=== PATIENT | male | born 1985 | race Caucasian/White ===

== ENCOUNTER 2019-07-08 18:28 | Inpatient (IN) ==
[2019-07-08] MEDS ORDERED: NITROGLYCERIN SL 0.4 MG/TAB TAB SL STA (18:57)
[2019-07-08] MEDS ORDERED: ASPIRIN CHEW 324 MG PO STA (18:57)
[2019-07-08] MEDS ORDERED: NovoLIN-R INSULIN PER UNIT CHARGE IV STA (19:15)
[2019-07-08] MEDS ORDERED: SODIUM CHLORIDE 0.9% 1000ML 1,000 ML IV ONE (19:15)
[2019-07-08 19:16] LABS: Basophils # (auto) 0.05 K/uL (0-0.2); Basophils % (auto) 0.5 %; Eosinophils # (auto) 0.08 K/uL (0-0.5); Eosinophils % (auto) 0.9 %; Hematocrit (blood only) 39.4 % (42-52); Hemoglobin 14.5 g/dL (14.0-18.0); Immature Granulocytes # (auto) 0.04 K/uL (0.00-0.02); Immature Granulocytes % (auto) 0.4 %; Lymphocytes # (auto) 2.29 K/uL (1.2-3.4); Lymphocytes % (auto) 24.4 %; Mean Corpuscular Hgb Conc 36.8 g/dL (32-36); Mean Corpuscular Volume 76.5 fL (80-100); Mean Platelet Volume 11.9 fL (7.4-10.4); Monocytes # (auto) 0.62 K/uL (0.11-0.59); Monocytes % (auto) 6.6 %; Neutrophils # (auto) 6.29 K/uL (1.4-6.5); Neutrophils % (auto) 67.2 %; Platelet Count 250 K/uL (130-400); RDW Coefficient of Variation 12.4 % (11.5-14.5); RDW Standard Deviation 34.4 fL (36.4-46.3); Red Blood Count 5.15 M/uL (4.7-6.1); White Blood Count 9.37 K/uL (4.8-10.8)
[2019-07-08] MEDS ORDERED: fentaNYL citrate 100 MCG/2 ML VIAL IV STA (19:35)
[2019-07-08] MEDS ORDERED: ONDANSETRON INJ 2 MG/ML 2 ML VIAL IV STA (19:36)
[2019-07-08 19:37] LABS: Albumin Globulin Ratio 0.9 (0.9-2); Albumin Level 3.7 gm/dl (3.4-5.0); BUN Creatinine Ratio 16.6 (10-20); Bilirubin,Total 0.5 mg/dl (0.2-1); Calcium 9.2 mg/dl (8.5-10.1); Creatinine Clr Calc Pharmacy 152.3 ml/min; Est GFR (African American) 144.6; Est GFR (Non-African American) 124.7; Potassium 4.2 mmol/L (3.5-5.1); Total Protein 7.7 gm/dl (6.4-8.2)
[2019-07-08] MEDS ORDERED: LORazepam 1 MG/2 ML VIAL IV STA (19:50)
--- NOTE | 2019-07-08 19:53 | XRay Report ---
XR chest 1V portable CLINICAL HISTORY: Atypical chest pain COMPARISON STUDY: September 2011 FINDINGS: The cardiac and mediastinal contours are normal. There is no evidence of focal pulmonary co nsolidation. There is no evidence of failure. No pleural effusions are visualized.[ IMPRESSION: No active disease in the chest. Electronically signed by: Samuel Corona M.D. 07/08/2019 7:52 PM
[2019-07-08] MEDS ORDERED: NITROGLYCERIN 2% OINTMENT 30GM TUBE EXT ONE (20:19)
--- NOTE | 2019-07-08 21:58 | History & Physical Report ---
Date of Service July 08, 2019 Assessment & Plan (1) Chest pain: 33-year-old male was admitted on 08 July 2019 for chest pain. Chest pain: Apparently started after a stressful morning at work. Chest pain began at 1340 and was constant until relieved with nitroglycerin in ED. Apparently has had chest pain in the past but does not seem to have ever been evaluated. - In ED, afebrile, transiently tachycardic, transiently tachypneic, moderately hypertensive, with mostly normal room SpO2. WBC 9. D-dimer negative. pCXR was clear. POC troponin at 1905 was negative. Two initial EKGs were normal sinus rhythm without acute ST-T changes. - In ED, treated with aspirin 324 mg, nitroglycerin (tab and paste), Zofran, fentanyl, and Ativan. - Will keep nitroglycerin paste in place. Serial troponins and EKGs. Cardiac monitoring. Will order a stress echocardiogram for the morning. N.p.o. for now. Check A1c and lipids in the morning. Hyperglycemia, history of diabetes: Admit blood sugar 432, anion gap 9. Seen in the ED the day before for hyperglycemia. Previously decided to stop taking metformin. At present, patient says he is very against insulin as it is "bad science. - In ED, patient refused insulin. Given normal saline IVF. - Had long discussion with patient about risks of DKA and necessity of insulin. Will place orders for Lantus 10 units x 1 and insulin sliding scale. Continue IVF. - If patient refuses insulin, please document and continue to encourage its use as needed. Ongoing medical issues: - History of anxiety: Previous Ativan use. Code status: Full code. Diet: NPO for now pending stress test in am. DVT prophy: Lovenox. PT/OT: Deferred. Disbo: Admit to [facility] telemetry for observation. (2) Hyperglycemia: (3) Diabetes mellitus: (4) Anxiety: History of Present Illness Primary Care Provider: Susan Walls 33-year-old male presents to the emergency department with his girlfriend complaining of chest pain and possible shortness of breath. During this H&P, patient seems a bit sedated s/p Ativan but is easily arousable. He does not volunteer any information. Majority of the history is per the ED note and his girlfriend at bedside. - Per the girlfriend, the patient had a very stressful morning at work. He was given some increased responsibilities. She states that about 1:40 PM this afternoon he started developing central chest pain that radiated to his left arm and shoulder blade. Patient says this pain was constant until he was treated for it in the ED. When I asked him, initially said he was here because he was "out of breath". At present, he denies any chest pain, shortness of breath, nausea or vomiting, abdominal pain, or any other acute concerns. - We also discussed his elevated blood sugars and his ED note from a day ago. His girlfriend states that the patient was once on metformin but does not really like to take it. She also stated that the patient really dislikes insulin and does not want to be on it. I asked the patient and he replied that he does not like insulin because it is "unproven science" and that it hurt many members of his family they were on it. At present, he does say he would prefer to be on pill management for diabetes. His girlfriend says that his regular PCP was in [place] and they are looking for a primary provider in [place]. - Past medical history includes diabetes and anxiety. - No noted past surgical history. - Family history includes history of hypertension and diabetes. He also says that his father has had multiple heart attacks and that his brother (1 year difference) also has had multiple heart attacks. - Social history includes former smoker. Denies alcohol and illicit drug use. [employer]. Allergies Allergy/AdvReac Type Severity Reaction Status Date / Time bee venom protein (honey bee) Allergy Severe HIVES Verified 07/07/19 03:45 pollen extracts Allergy Mild UNKNOWN Verified 07/07/19 03:45 Home Medications Home Medications Medication Instructions Recorded Confirmed Type No Known Home Medications 07/08/19 07/08/19 History Past Med/Surg History Medical History Diabetes mellitus (Chronic) Surgical History No pertinent past surgical history Family History Other Cancer Diabetes Heart disease Hypertension Social History Preferred Language: Yi Business Objects Required: No Beliefs That Will Affect Care: None Current Living Situation: Significant Other Feels Safe at Home: Yes Smoking Status: Never smoker Hx Alcohol Use: No Hx Substance Use: No Review of Systems Review of Systems: Unable to obtain full ROS due to patient's generally sedated state. Physical Exam Physical Exam: GENERAL: Appears overall somnolent but answers quickly and easily arousable, answers questions, and does not appear in any acute distress. HENT: Normocephalic, atraumatic. Oropharynx is very dry. EYES: Normal conjunctiva. Sclera non-icteric. NECK: Inspection normal. Supple and full ROM. No nuchal rigidity. CARDIAC: +S1S2 RRR, no murmurs. RESPIRATORY: Clear to auscultation. No wheezes or rales. Normal respiratory effort. GI: +BS, soft, non-distended. No tenderness to palpation. No rebound or guarding. EXTREMITIES: No pedal edema or calf tenderness. Moving all extremities naturally and easily. NEURO: No gross neuro deficits. Results & Data Vital Signs (Past 12 Hours) Vital Signs Temp Pulse Resp BP Pulse Ox 07/08/19 21:30 75 19 124/87 94 07/08/19 21:00 72 26 H 134/95 96 07/08/19 20:45 71 18 122/91 96 07/08/19 20:35 74 22 142/102 H 96 07/08/19 20:28 69 22 142/98 H 95 07/08/19 20:25 70 15 139/95 94 07/08/19 20:20 67 11 L 135/99 94 07/08/19 20:15 64 14 129/94 98 07/08/19 20:10 74 10 L 143/95 H 85 L 07/08/19 20:05 56 L 8 L 136/93 70 L 07/08/19 20:00 60 7 L 160/98 H 77 L 07/08/19 19:55 70 22 143/97 H 99 07/08/19 19:50 70 28 H 156/106 H 99 07/08/19 19:45 97 H 19 160/126 H 100 07/08/19 19:40 74 31 H 160/115 H 100 07/08/19 19:35 82 20 144/103 H 89 L 07/08/19 19:30 75 30 H 148/117 H 90 07/08/19 19:25 109 H 20 153/107 H 98 07/08/19 19:20 101 H 31 H 147/115 H 07/08/19 19:16 100 H 23 153/93 H 07/08/19 19:14 78 34 H 139/102 H 07/08/19 19:10 85 34 H 07/08/19 18:45 76 17 159/102 H 07/08/19 18:33 36.4 C L 69 18 155/98 H 97 Laboratory Results 07/08/19 07/08/19 07/08/19 Range/Units 19:05 19:00 19:00 WBC 9.37 (4.8-10.8) K/uL RBC 5.15 (4.7-6.1) M/uL Hgb 14.5 (14.0-18.0) g/dL Hct 39.4 L (42-52) % MCV 76.5 L (80-100) fL MCH 28.2 (25-34) pg MCHC 36.8 H (32-36) g/dL RDW Std Deviation 34.4 L (36.4-46.3) fL RDW Coeff of Javid 12.4 (11.5-14.5) % Plt Count 250 (130-400) K/uL MPV 11.9 H (7.4-10.4) fL Immature Gran % (Auto) 0.4 % Neut % (Auto) 67.2 % Lymph % (Auto) 24.4 % Kings % (Auto) 6.6 % Eos % (Auto) 0.9 % Baso % (Auto) 0.5 % Immature Gran # (Auto) 0.04 H (0.00-0.02) K/uL Neut # (Auto) 6.29 (1.4-6.5) K/uL Lymph # (Auto) 2.29 (1.2-3.4) K/uL Kings # (Auto) 0.62 H (0.11-0.59) K/uL Eos # (Auto) 0.08 (0-0.5) K/uL Baso # (Auto) 0.05 (0-0.2) K/uL POC D-Dimer 105 (0-450) ng/mlFEU Sodium 134 L (136-145) mmol/L Potassium 4.2 (3.5-5.1) mmol/L Chloride 100 (98-107) mmol/L Carbon Dioxide 25 (21-32) mmol/L Anion Gap 9.0 (3-11) BUN 11 (7-18) mg/dl Creatinine 0.69 (0.6-1.4) mg/dl Est Cr Clr Drug Dosing 152.3 ml/min Est GFR ( Amer) 144.6 Est GFR (Non-Af Amer) 124.7 BUN/Creatinine Ratio 16.6 (10-20) Glucose 432 H* (70-99) mg/dl Calcium 9.2 (8.5-10.1) mg/dl Total Bilirubin 0.5 (0.2-1) mg/dl AST 17 (15-37) U/L ALT 34 (12-78) U/L Alkaline Phosphatase 78 (45-117) U/L POC Troponin I < 0.03 (0-0.045) ng/ml Total Protein 7.7 (6.4-8.2) gm/dl Albumin 3.7 (3.4-5.0) gm/dl Globulin 4.0 (2.5-4.0) gm/dl Albumin/Globulin Ratio 0.9 (0.9-2) Beta-Hydroxybutyric Acd (0.2-2.81) mg/dl Specimen Hemolysis Medications Administered Discontinued Medications Aspirin (Aspirin) 324 mg PO NOW STA Stop: 07/08/19 18:58 Last Admin: 07/08/19 19:09 Dose: 324 mg Documented by: Fentanyl Citrate (Fentanyl Citrate) 50 mcg IV NOW STA Stop: 07/08/19 19:36 Last Admin: 07/08/19 19:40 Dose: 50 mcg Documented by: [id number] Sodium Chloride (Nss 1000ml) 1,000 mls @ 999 mls/hr IV .Q1H1M ONE Stop: 07/08/19 20:15 Last Infusion: 07/08/19 20:00 Dose: 0 mls/hr Documented by: [id number] Admin: 07/08/19 19:17 Dose: 999 mls/hr Documented by: [id number] Lorazepam (Ativan) 1 mg in 2 mls @ 2 mls/min IV NOW STA Stop: 07/08/19 19:51 Last Admin: 07/08/19 19:57 Dose: 2 mls/min Documented by: [id number] Insulin Human Regular (Novolin R U-100 Per Unit) 8 units IV NOW STA Stop: 07/08/19 19:16 Last Admin: 07/08/19 19:25 Dose: Not Given Documented by: [id number] Nitroglycerin (Nitrostat) 0.4 mg SL UD STA Stop: 07/08/19 18:58 Last Admin: 07/08/19 19:11 Dose: 0.4 mg Documented by: [id number] Nitroglycerin (Nitro-Bid 2%) 1 inch EXT NOW ONE Stop: 07/08/19 20:20 Last Admin: 07/08/19 20:29 Dose: 1 inch Documented by: [id number] Ondansetron HCl (Zofran) 4 mg IV NOW STA Stop: 07/08/19 19:37 Last Admin: 07/08/19 19:39 Dose: 4 mg Documented by: [id number] Code Status & VTE Plan Code Status Full code VTE Prophylaxis Plan VTE Prophylaxis will be ordered: Yes Supervising Physician Co-Signing Physician Notes Attending Attestation & Admission Note: Pt seen/examined, chart reviewed, care plan d/w resident Dr Wilfredo Barfield. I agree w/ the cruz components of his admission documentation. 33yo male with severely uncontrolled T2DM due to dietary and medicinal noncompliance, strong family h/o CAD (brother, father w/ CAD), prior tobacco use - presenting with several hours of left-sided chest pain with radiation to the left shoulder. Had associated dyspnea. Pain resolved with nitro. During my assessment he was quite sedated due to ativan and fentanyl administration in the ER. He was able to tell me, however, he had never had chest pain prior. PMH, PSH, allergies, meds, sochx, famhx, ros - reviewed vitals stable, afebrile gen - NAD, sleepy but arousable mouth - MMM neck - no JVD heart - RRR, s1 s2, no murmur chest - no reproducible chest wall pain lungs - CTA b/l abd - soft NT ND BS+ ext - no edema labs reviewed; trop negative. EKG #1 - minimal ST changes III, AVF and anteroseptal leads EKG #2 - inferior changes resolved; anterior changes resolved A/P: 33yo male - severely uncontrolled T2DM, family h/o CAD, prior tobacco use - presenting with chest pain now resolved s/p nitro. History highly concerning his pain could be cardiac in origin. Tele, serial troponins, EKG in am. At minimum needs stress echo. NEEDS SIGNIFICANT IMPROVEMENT IN DM CONTROL; IDEALLY NEEDS INTENSIVE INSULIN REGIMEN FOR CONTROL. Check hemoglobin a1c, lipids. NPO after MN for cardiac testing tomorrow. Sylvain Qureshi MD PG Care Time/CCT Total # of Minutes Spent Total Time Spent with Patient: Total time spent is greater than 50% in coordination of care (as documented) at patient's floor/unit and/or counseling patient: Resident Activity Tracking Resident Involvement: Resident Care Provided Care Provided: Adult Hospital Medicine
--- NOTE | 2019-07-08 22:16 | Emergency Department Note ---
Entered by Anna Tang acting as a scribe for Kenny Casey MD History of Present Illness General Chief complaint: Chest Pain Stated complaint: CHEST PAIN, SOB, LEFT ARM PAIN- HX HYPERGLYCEMIA Source: patient and other (Girlfriend ) History of Present Illness Provider complaint: Chest pain Onset (ago): hour(s) 5 Location: chest Pain Consistency: + constant Maximum Pain Intensity: 7 Quality: + other ("someone stomping on my chest") Exacerbated By: + other (exertion) Associated symptoms: + chest pain, + diaphoresis and + other (Positive: arm pain, shoulder blade pain) The patient is a 33 year old male with past medical history of hyperglycemia, diabetes mellitus, who presents to the ED with complaints of constant chest pain that started 5 hours ago. The patient reports he felt winded when he walked from his car to his workplace. He notes he gradually felt more winded as the day went on. The patient states he then developed chest pain, arm pain and shoulder blade pain. He additionally reports his pain is worsened with exertion. He describes his chest pain as someone is stomping on it and rates it as 7/10. The patient states he was sweating indoors and was short of breath. He notes he has family history of heart attacks. He states his brother had his first heart attack when he was 28. He had a second 1 in his 30s. The patient denies ever having a catheterization. He reports he is diabetic but does not have history of blood clots in lungs or legs. The patients girlfriend states the patient had profuse sweating last night while watching TV. They did state that they were recently at [place] which is approximately 4 to 5 hours away. They did state that they were taking breaks during the drive and he denies having any leg pain or swelling. Home Medications Home Medications Medication Instructions Recorded Confirmed Type No Known Home Medications 07/08/19 07/08/19 History Allergies Allergy/AdvReac Type Severity Reaction Status Date / Time bee venom protein (honey bee) Allergy Severe HIVES Verified 07/07/19 03:45 pollen extracts Allergy Mild UNKNOWN Verified 07/07/19 03:45 Past Med/Surg History Medical History Diabetes mellitus (Chronic) Surgical History No pertinent past surgical history Family History Other Cancer Diabetes Heart disease Hypertension Social History Preferred Language: Armenian Feels Safe at Home: Yes Smoking Status: Former smoker Review of Systems See HPI for pertinent positives & negatives. and A total of 10 systems reviewed and were otherwise negative Physical Exam Vital Signs Vital Signs - 24 hr 07/08/19 18:33 07/08/19 18:45 07/08/19 18:57 Temperature 36.4 C L Temperature Source Oral Sepsis Recent Fever Within 48 Hours No Sepsis New/Unexplained Change in Mental Status No Sepsis Action Taken by Nursing No Action Required Oxygen Flow Rate - Titration Pulse Oximetry Post Tiitration Pulse Rate 69 76 Pulse Rate from SpO2 Sensor Pulse Rhythm Regular Pulse Strength Normal Respiratory Rate 18 17 Respiratory Effort / Characteristics Non-Labored Spontaneous Respiratory Depth Normal Respiratory Pattern Regular Blood Pressure 155/98 H 159/102 H Blood Pressure Mean 117 121 Blood Pressure Position Sitting Pulse Oximetry 97 Oxygen Delivery Method Room Air Room Air Oxygen Flow Rate 07/08/19 19:10 07/08/19 19:14 07/08/19 19:16 Temperature Temperature Source Sepsis Recent Fever Within 48 Hours Sepsis New/Unexplained Change in Mental Status Sepsis Action Taken by Nursing Oxygen Flow Rate - Titration Pulse Oximetry Post Tiitration Pulse Rate 85 78 100 H Pulse Rate from SpO2 Sensor Pulse Rhythm Pulse Strength Respiratory Rate 34 H 34 H 23 Respiratory Effort / Characteristics Respiratory Depth Respiratory Pattern Blood Pressure 139/102 H 153/93 H Blood Pressure Mean 114 113 Blood Pressure Position Pulse Oximetry Oxygen Delivery Method Oxygen Flow Rate 07/08/19 19:20 07/08/19 19:25 07/08/19 19:30 Temperature Temperature Source Sepsis Recent Fever Within 48 Hours Sepsis New/Unexplained Change in Mental Status Sepsis Action Taken by Nursing Oxygen Flow Rate - Titration Pulse Oximetry Post Tiitration Pulse Rate 101 H 109 H 75 Pulse Rate from SpO2 Sensor Pulse Rhythm Pulse Strength Respiratory Rate 31 H 20 30 H Respiratory Effort / Characteristics Respiratory Depth Respiratory Pattern Blood Pressure 147/115 H 153/107 H 148/117 H Blood Pressure Mean 125 122 127 Blood Pressure Position Pulse Oximetry 98 90 Oxygen Delivery Method Room Air Room Air Oxygen Flow Rate 07/08/19 19:35 07/08/19 19:40 07/08/19 19:45 Temperature Temperature Source Sepsis Recent Fever Within 48 Hours Sepsis New/Unexplained Change in Mental Status Sepsis Action Taken by Nursing Oxygen Flow Rate - Titration Pulse Oximetry Post Tiitration Pulse Rate 82 74 97 H Pulse Rate from SpO2 Sensor Pulse Rhythm Pulse Strength Respiratory Rate 20 31 H 19 Respiratory Effort / Characteristics Respiratory Depth Respiratory Pattern Blood Pressure 144/103 H 160/115 H 160/126 H Blood Pressure Mean 116 130 137 Blood Pressure Position Pulse Oximetry 89 L 100 100 Oxygen Delivery Method Room Air Room Air Room Air Oxygen Flow Rate 07/08/19 19:50 07/08/19 19:55 07/08/19 20:00 Temperature Temperature Source Sepsis Recent Fever Within 48 Hours Sepsis New/Unexplained Change in Mental Status Sepsis Action Taken by Nursing Oxygen Flow Rate - Titration Pulse Oximetry Post Tiitration Pulse Rate 70 70 60 Pulse Rate from SpO2 Sensor Pulse Rhythm Pulse Strength Respiratory Rate 28 H 22 7 L Respiratory Effort / Characteristics Respiratory Depth Respiratory Pattern Blood Pressure 156/106 H 143/97 H 160/98 H Blood Pressure Mean 122 112 118 Blood Pressure Position Pulse Oximetry 99 99 77 L Oxygen Delivery Method Room Air Room Air Room Air Oxygen Flow Rate 07/08/19 20:05 07/08/19 20:10 07/08/19 20:15 Temperature Temperature Source Sepsis Recent Fever Within 48 Hours Sepsis New/Unexplained Change in Mental Status Sepsis Action Taken by Nursing Oxygen Flow Rate - Titration 4 Pulse Oximetry Post Tiitration 94 Pulse Rate 56 L 74 64 Pulse Rate from SpO2 Sensor 73 65 Pulse Rhythm Pulse Strength Respiratory Rate 8 L 10 L 14 Respiratory Effort / Characteristics Respiratory Depth Respiratory Pattern Blood Pressure 136/93 143/95 H 129/94 Blood Pressure Mean 107 111 105 Blood Pressure Position Pulse Oximetry 70 L 85 L 98 Oxygen Delivery Method Room Air Room Air Nasal Cannula Oxygen Flow Rate 0 07/08/19 20:20 07/08/19 20:25 07/08/19 20:28 Temperature Temperature Source Sepsis Recent Fever Within 48 Hours Sepsis New/Unexplained Change in Mental Status Sepsis Action Taken by Nursing Oxygen Flow Rate - Titration Pulse Oximetry Post Tiitration Pulse Rate 67 70 69 Pulse Rate from SpO2 Sensor 69 68 69 Pulse Rhythm Pulse Strength Respiratory Rate 11 L 15 22 Respiratory Effort / Characteristics Respiratory Depth Respiratory Pattern Blood Pressure 135/99 139/95 142/98 H Blood Pressure Mean 111 109 112 Blood Pressure Position Pulse Oximetry 94 94 95 Oxygen Delivery Method Oxygen Flow Rate 07/08/19 20:35 07/08/19 20:45 07/08/19 21:00 Temperature Temperature Source Sepsis Recent Fever Within 48 Hours Sepsis New/Unexplained Change in Mental Status Sepsis Action Taken by Nursing Oxygen Flow Rate - Titration Pulse Oximetry Post Tiitration Pulse Rate 74 71 72 Pulse Rate from SpO2 Sensor 72 Pulse Rhythm Pulse Strength Respiratory Rate 22 18 26 H Respiratory Effort / Characteristics Respiratory Depth Respiratory Pattern Blood Pressure 142/102 H 122/91 134/95 Blood Pressure Mean 115 101 108 Blood Pressure Position Pulse Oximetry 96 96 96 Oxygen Delivery Method Room Air Room Air Oxygen Flow Rate 07/08/19 21:30 Temperature Temperature Source Sepsis Recent Fever Within 48 Hours Sepsis New/Unexplained Change in Mental Status Sepsis Action Taken by Nursing Oxygen Flow Rate - Titration Pulse Oximetry Post Tiitration Pulse Rate 75 Pulse Rate from SpO2 Sensor Pulse Rhythm Pulse Strength Respiratory Rate 19 Respiratory Effort / Characteristics Respiratory Depth Respiratory Pattern Blood Pressure 124/87 Blood Pressure Mean 99 Blood Pressure Position Pulse Oximetry 94 Oxygen Delivery Method Room Air Oxygen Flow Rate Constitutional: Vital signs reviewed. Eyes: Pupils are equal round reactive to light. Conjunctiva are noninjected. ENT: Pharynx is clear without erythema or exudate. Mucous membranes are moist. Neck supple without meningeal signs. Respiratory: Clear to auscultation bilaterally. Breath sounds are equal bilaterally. Cardiovascular: Regular rate and rhythm. No rubs or gallops. GI: Soft, nondistended and nontender. Bowel sounds are present. Musculoskeletal: No peripheral edema. No lower extremity tenderness. Integumentary: No cyanosis. Neurological: The patient is awake and alert. No focal deficits. Psychiatric: Anxious sometimes tearful. Course 184: The patient was evaluated in room A11B. A complete history and physical exam was performed. 1934: I checked on the patient. The patient is tearful and hyperventilating. The nurse states he spit out the nitro because he did not like the taste in his mouth and his mouth is dry. There is no change in his chest pain. The patient is refusing insulin despite my recommendations. I asked him repeatedly why and he kept saying he just does not want it. His girlfriend offered that his family has had a problem with insulin in the past so that is why he does not want it. The patient continues to refuse insulin despite my explanation to him 1947: I checked on the patient. The patient states he feels hot but his chest pain went from 7/10 to 6/10. 2014: I reassessed the patient. The patient feels less anxious but rather somnolent. The patient has to be on oxygen to maintain his oxygen saturation. He states his chest pain is better but still has some. I recommended h ospitalization. The patient is agreeable. 2035: I discussed the patient's case with Dr. Qureshi, [facility] Hospitalist. He accepted the patient. 2042: I checked on the patient. His pain is minimal. Consultations Consultation #1: I discussed the patient's case with Dr. Qureshi, [facility] Hospitalist. He accepted the patient. Time: 20:36 Administered Medications Discontinued Medications Aspirin (Aspirin) 324 mg PO NOW STA Stop: 07/08/19 18:58 Last Admin: 07/08/19 19:09 Dose: 324 mg Documented by: [id number] Fentanyl Citrate (Fentanyl Citrate) 50 mcg IV NOW STA Stop: 07/08/19 19:36 Last Admin: 07/08/19 19:40 Dose: 50 mcg Documented by: [id number] Sodium Chloride (Nss 1000ml) 1,000 mls @ 999 mls/hr IV .Q1H1M ONE Stop: 07/08/19 20:15 Last Infusion: 07/08/19 20:00 Dose: 0 mls/hr Documented by: [id number] Admin: 07/08/19 19:17 Dose: 999 mls/hr Documented by: [id number] Lorazepam (Ativan) 1 mg in 2 mls @ 2 mls/min IV NOW STA Stop: 07/08/19 19:51 Last Admin: 07/08/19 19:57 Dose: 2 mls/min Documented by: [id number] Insulin Human Regular (Novolin R U-100 Per Unit) 8 units IV NOW STA Stop: 07/08/19 19:16 Last Admin: 07/08/19 19:25 Dose: Not Given Documented by: [id number] Nitroglycerin (Nitrostat) 0.4 mg SL UD STA Stop: 07/08/19 18:58 Last Admin: 07/08/19 19:11 Dose: 0.4 mg Documented by: [id number] Nitroglycerin (Nitro-Bid 2%) 1 inch EXT NOW ONE Stop: 07/08/19 20:20 Last Admin: 07/08/19 20:29 Dose: 1 inch Documented by: [id number] Ondansetron HCl (Zofran) 4 mg IV NOW STA Stop: 07/08/19 19:37 Last Admin: 07/08/19 19:39 Dose: 4 mg Documented by: [id number] Medical Decision Making Differential Diagnosis Differential Diagnosis: Unstable angina, WI, anxiety, panic attack, PE Medical Records Attestation: I reviewed the patient's medical records. (The patient was seen here 2 days ago for hyperglycemia. His sugar was 428. He stopped taking his Metformin a year ago because he did not like the side effects. The patient was treated with insulin in the ED and was told to take his medications regularly. ) Home Medications Current Medication List: was personally reviewed by me (No known home medications ) Laboratory Data Attestation: I reviewed the patient's lab results. Result diagrams: 07/08/19 19:00 07/08/19 19:00 Lab Results 07/08/19 07/08/19 07/08/19 Range/Units 19:00 19:00 19:05 WBC 9.37 (4.8-10.8) K/uL RBC 5.15 (4.7-6.1) M/uL Hgb 14.5 (14.0-18.0) g/dL Hct 39.4 L (42-52) % MCV 76.5 L (80-100) fL MCH 28.2 (25-34) pg MCHC 36.8 H (32-36) g/dL RDW Std Deviation 34.4 L (36.4-46.3) fL RDW Coeff of Javid 12.4 (11.5-14.5) % Plt Count 250 (130-400) K/uL MPV 11.9 H (7.4-10.4) fL Immature Gran % (Auto) 0.4 % Neut % (Auto) 67.2 % Lymph % (Auto) 24.4 % Clare % (Auto) 6.6 % Eos % (Auto) 0.9 % Baso % (Auto) 0.5 % Immature Gran # (Auto) 0.04 H (0.00-0.02) K/uL Neut # (Auto) 6.29 (1.4-6.5) K/uL Lymph # (Auto) 2.29 (1.2-3.4) K/uL Clare # (Auto) 0.62 H (0.11-0.59) K/uL Eos # (Auto) 0.08 (0-0.5) K/uL Baso # (Auto) 0.05 (0-0.2) K/uL POC D-Dimer 105 (0-450) ng/mlFEU Sodium 134 L (136-145) mmol/L Potassium 4.2 (3.5-5.1) mmol/L Chloride 100 (98-107) mmol/L Carbon Dioxide 25 (21-32) mmol/L Anion Gap 9.0 (3-11) BUN 11 (7-18) mg/dl Creatinine 0.69 (0.6-1.4) mg/dl Est Cr Clr Drug Dosing 152.3 ml/min Est GFR ( Amer) 144.6 Est GFR (Non-Af Amer) 124.7 BUN/Creatinine Ratio 16.6 (10-20) Glucose 432 H* (70-99) mg/dl Calcium 9.2 (8.5-10.1) mg/dl Total Bilirubin 0.5 (0.2-1) mg/dl AST 17 (15-37) U/L ALT 34 (12-78) U/L Alkaline Phosphatase 78 (45-117) U/L POC Troponin I < 0.03 (0-0.045) ng/ml Total Protein 7.7 (6.4-8.2) gm/dl Albumin 3.7 (3.4-5.0) gm/dl Globulin 4.0 (2.5-4.0) gm/dl Albumin/Globulin Ratio 0.9 (0.9-2) Beta-Hydroxybutyric Acd (0.2-2.81) mg/dl Specimen Hemolysis Imaging Data Radiologist's Impression: Radiology results as stated below per my review and the radiologist's interpretation: XR chest 1V portable CLINICAL HISTORY: Atypical chest pain COMPARISON STUDY: September 2011 FINDINGS: The cardiac and mediastinal contours are normal. There is no evidence of focal pulmonary consolidation. There is no evidence of failure. No pleural effusions are visualized.[ IMPRESSION: No active disease in the chest. Electronically signed by: Samuel Corona M.D. 07/08/2019 7:52 PM ECG Data Attestation: I personally reviewed and interpreted this ECG as follows: Indication: chest pain Rate (beats per minute): 63 Rhythm: normal sinus Findings: no PVC and no ST elevation Additional Comments: Repeat ECG: Sinus rhythm at 73 beats per minute. No ST elevation. Minimal down sloping ST segments in leads 1 and AVL. Blood Pressure Blood Pressure Findings: Elevated blood pressure Blood Pressure Disposition: elevated BP felt to be situational MDM Narrative I did evaluate the patient as noted above. The patient is presenting with exertional chest pain. He states that if he walks a short distance he becomes short of breath and feels like someone is stepping on his chest. He does have a significant family history of cardiac disease with his brother having an WI in his late 20s. The patient is very anxious here. IV access was established. The patient was placed on a continuous electronic device monitor. I did treat the patient with nitroglycerin sublingually. It is unclear how much nitroglycerin he received as the patient stated that he did not like the taste of it and the geodetic technician noted that he was spitting it out. I did treat him with fentanyl and Zofran IV. I did order and personally review the patient's 12-lead EKG as described above. He has no acute ischemic changes. I did order and personally reviewed the images of the patient's chest x-ray as described above. Chest x- ray is unremarkable. I did order and review the patient's blood work as noted in the electronic medical record. Troponin and d-dimer are negative. He is hyperglycemic. He was given a liter normal saline IV. I also ordered 8 units of regular insulin IV. I did reassess the patient. He is now more tearful and hyperventilating extremely anxious. He still reports some chest pain although it is improved. He is refusing the IV insulin without giving me a reason. His girlfriend volunteered that he does not want it because he has had family members who have had issues on insulin. I did try to explain the reason to lower his glucose but he still refused. Due to his extreme anxiety he was given Ativan 1 mg IV. I also ordered nitroglycerin paste 1 inch to the anterior chest wall as he would not take the sublingual nitroglycerin. The nurse reported that the patient became extremely somnolent after the Ativan and at the place him on supplemental oxygen. I did reassess him several times again. He states that he has minimal chest pain at this time. I did recommend hospitalization for further care and evaluation including repeat cardiac biomarkers and likely stress testing tomorrow. Impression & Plan Exertional chest pain, Hyperglycemia, Anxiety Discharge Plan Visit Data Chief Complaint: Chest Pain Stated Complaint: CHEST PAIN, SOB, LEFT ARM PAIN- HX HYPERGLYCEMIA ED Provider: Kenny Casey Discharge Problem: Exertional chest pain, Hyperglycemia, Anxiety Patient Disposition: Being Evaluated by Hospitalist Forms Stand Alone Forms: Call Back Authorization, [facility] Prescriptions Prescriptions: No Action No Known Home Medications RF: 0 Referrals Referrals: Susan Walls M.D. [Primary Care Provider] - The scribe's documentation has been prepared under my direction and personally reviewed by me in its entirety. I confirm that the note above accurately reflects all work, treatment, procedures, and medical decision making performed by me.
[2019-07-08] MEDS ORDERED: GLUCOSE 10 TABS/TUBE PO PRN (23:28)
[2019-07-08] MEDS ORDERED: DEXTROSE 50% 50 ML SYRINGE IV PRN (23:28)
[2019-07-08] MEDS ORDERED: GLUCAGON FOR INJ 1 MG VIAL SQ PRN (23:28)
[2019-07-08] MEDS ORDERED: INSULIN GLARGINE SOLOSTAR 100 UNITS/ML 3 ML PEN SC ONE (23:28)
[2019-07-08] MEDS ORDERED: GLUCOSE 40% GEL 15 GM TUBE PO PRN (23:28)
[2019-07-08] MEDS ORDERED: ACETAMINOPHEN 325 MG TAB PO PRN (23:28)
[2019-07-08] MEDS ORDERED: ONDANSETRON INJ 2 MG/ML 2 ML VIAL IV PRN (23:28)
[2019-07-08] MEDS ORDERED: MoRPHine SULFATE 4 MG/ML 1 ML CARP\\VIAL IV PRN (23:28)
[2019-07-08] MEDS ORDERED: NITROGLYCERIN SL 0.4 MG/TAB TAB SL PRN (23:28)
[2019-07-08] MEDS ORDERED: CARBOHYDRATES FOR HYPOGLYCEMIA PO PRN (23:28)
[2019-07-09] MEDS: LACTATED RINGER'S 1,000 ML IV SCH ×3 (00:12→16:40)
[2019-07-09] MEDS: INSULIN ASPART 100 UNITS/ML 3 ML PEN SC SCH ×4 (00:50→22:02)
[2019-07-09 07:27] LABS: Prothrombin Time 10.3 Seconds (9.0-12.0)
[2019-07-09 07:30] LABS: Estimated Average Glucose 390 mg/dl; Hemoglobin A1C 15.2 % (4.5-5.6)
[2019-07-09 07:54] LABS: BUN Creatinine Ratio 21.4 (10-20); Blood Urea Nitrogen 12 mg/dl (7-18); Calcium 8.2 mg/dl (8.5-10.1); Carbon Dioxide 28 mmol/L (21-32); Chloride 105 mmol/L (98-107); Cholesterol 217 mg/dl (0-200); Creatinine Clr Calc Pharmacy 184.3 ml/min; Est GFR (African American) > 150.0; Est GFR (Non-African American) 134.9; Glucose 302 mg/dl (70-99); Potassium 3.8 mmol/L (3.5-5.1); Sodium 140 mmol/L (136-145); Triglycerides 320 mg/dl (0-150); VLDL Cholesterol 64 mg/dl
[2019-07-09 07:55] LABS: Chol HDL Ratio 7; HDL Cholesterol 30 mg/dl; LDL Cholesterol Calculated 123 mg/dl
[2019-07-09] MEDS ORDERED: ENOXAPARIN INJ 40 MG/0.4 ML SYR SQ SCH (08:00)
[2019-07-09 08:07] LABS: Beta-Hydroxybutyrate 3.38 mg/dl (0.2-2.81)
[2019-07-09] MEDS ORDERED: HEPARIN SODIUM/DEXTROSE 25,000 UNITS/500 ML BAG IV SCH (08:30)
[2019-07-09] MEDS ORDERED: HEPARIN IV BOLUS 6,000 UNITS in SYRINGE 0 ML IV ONE (08:45)
[2019-07-09] MEDS ORDERED: INSULIN GLARGINE SOLOSTAR 100 UNITS/ML 3 ML PEN SC SCH (09:00)
[2019-07-09] MEDS: ASPIRIN 81 MG CHEW PO SCH (09:27)
[2019-07-09 09:30] LABS: Partial Thromboplastin Ratio 0.9; Partial Thromboplastin Time 24.8 Seconds (21.0-31.0)
--- NOTE | 2019-07-09 10:28 | Cardiology Consultation ---
Date of Consultation July 09, 2019 Assessment & Plan (1) Chest pain: 2. Poorly controlled diabetes 3. Dyslipidemia Patient here with acute onset chest pain yesterday, now resolved. Noted to have dynamic ST changes with minimally elevated troponin. Patient with significant ASCVD risk factors including family history of premature CAD and poorly controlled diabetes. Suspicion for ACS is high and at elevated risk for adverse cardiac events. Recommend proceeding with early invasive approach. Discussed cardiac catheterization including risk, benefits, alternatives with patient and girlfriend. They are going to discuss further with additional family members but plan to likely proceed later this afternoon. In the interim continue heparin infusion, aspirin and please keep n.p.o. History of Present Illness Attending Physician: Sylvain Qureshi History of Present Illness Mr. Solitario is a very pleasant 33-year-old man with a history of type 2 diabetes, family history of coronary disease who was admitted with acute onset chest pain. Cardiology consult for management of suspected ACS. Patient states was in his usual state of health when at work developed acute substernal chest pain, generalized fatigue, nausea. Was only able to stay with for approximately 3 hours and then had to go home before presenting to ED. Reports brief episodes of similar chest pain occurring at any time in the past but nothing as severe as occurred yesterday. Chest pain relieved in the ED with nitroglycerin and no chest pain since last night. Initial troponin negative. Initial EKG showed sinus rhythm with inferior T wave inversions which subsequently resolved on follow-up EKG and were again noted on EKG this a.m. Repeat troponin this a.m. elevated at 0.048. Of note patient's A1c 15.2. States diagnosed with diabetes years ago and was previously on metformin. States that stopped taking more than a year ago after lost 60 pounds. He attributes weight loss to depression and not eating following the loss of his mother. Patient has significant family history of premature coronary disease with father having multiple MIs in his 40s. Brother reportedly had a mild heart attack with questionable heart failure in his 30s. Allergies Allergy/AdvReac Type Severity Reaction Status Date / Time bee venom protein (honey bee) Allergy Severe HIVES Verified 07/07/19 03:45 pollen extracts Allergy Mild UNKNOWN Verified 07/07/19 03:45 Home Medications Home Medications Medication Instructions Recorded Confirmed Type No Known Home Medications 07/08/19 07/08/19 History Patient History Medical History Diabetes mellitus (Chronic) Surgical History No pertinent past surgical history Family History Other Cancer Diabetes Heart disease Hypertension Social History Preferred Language: Sami Brace Maker Required: No Beliefs That Will Affect Care: None Current Living Situation: Significant Other Feels Safe at Home: Yes Smoking Status: Never smoker Hx Alcohol Use: No Hx Substance Use: No Review of Systems Review of Systems: All systems reviewed & are unremarkable except as noted in HPI & below Physical Exam Physical Exam: General: Comfortable, generally unwell appearing Eyes: Sclerae anicteric, extraocular movements intact HENT: Oropharynx clear mucous membranes moist Neck: Normal carotid upstrokes, no bruits. No JVD. Lungs: Clear to auscultation bilaterally, no rhonchi or wheezes Cardiac: Regular rate and rhythm, no murmurs, rubs or gallops. Vascular: 2+ radial bilaterally Abdomen: Soft, nontender, nondistended, positive bowel sounds. Extremities: Well perfused, no peripheral edema Skin: No rashes or lesions. Neuro: Nonfocal Psych: Alert orient x3, normal affect and mood Results & Data Vital Signs (Past 12 Hours) Vital Signs Temp Pulse Pulse Pulse Resp BP BP 07/09/19 07:06 36.6 C 75 18 122/84 07/09/19 04:46 36.4 C L 71 20 113/74 07/09/19 01:27 70 07/08/19 23:32 36.8 C 67 16 126/79 07/08/19 22:30 72 17 119/83 Pulse Ox 07/09/19 07:06 95 07/09/19 04:46 97 07/09/19 01:27 07/08/19 23:32 96 07/08/19 22:30 95 PG Care Time/CCT Total # of Minutes Spent Total Time Spent with Patient: Total time spent is greater than 50% in coordination of care (as documented) at patient's floor/unit and/or counseling patient:
--- NOTE | 2019-07-09 10:55 | Hospitalist Progress Note ---
Date of Service July 09, 2019 Assessment & Plan (1) ST elevation (STEMI) myocardial infarction: Patient initially with mildly elevated troponin this am coupled with dynamic T wave changes in the inferior leads on EKG. Heparin drip initiated and aspirin continued. Patient went to cath with Dr El this afternoon revealing a 99% RCA occlusion. Additional disease found in the LAD and PLB. SIMRAN was deployed to the RCA occlusion. Patient subsequently admitted to PCU. Early this evening the patient developed ST changes on telemetry along with chest pain that was similar to pain he had had pre-admission. Repeat EKG showed STEMI of the inferior leads. Code heart alert called. Dr Hernandez and Dr El responded to the code heart alert and provided cruz recommendations. Dr El took Mr Solitario back to the denture laboratory technician due to the recurrent chest pain and EKG showing STEMI. Defer management to cardiology. Patient to be admitted to the ICU post-cath this evening. (2) CAD (coronary artery disease): Severe RCA disease - see "STEMI" above. Additional disease in the LAD and PLB as per cath early this afternoon. Obtain echo. Asa 81mg daily. Loaded with ticagrelor earlier today, then 90mg BID thereafter. If BP/HR will allow would benefit from beta samson. Start high-intensity statin for hyperlipidemia. Consider triglyceride lowering agent as well given the level (>300). TSH noted to be normal. Will need intensive therapy for his uncontrolled T2DM. Needs dietary counseling. Cardiac rehab post-discharge. (3) Severe uncontrolled diabetes mellitus: Lengthy discussion held with patient this AM regarding markedly elevated HbA1c (15%). I explained that controlling his DM at this time with oral agents alone would not be possible. Discussed the need for intensive insulin regimen. He initially was very resistant. Later in the day he WAS agreeable to starting some insulin. Will employ 15 units BID of lantus along with novolog (correction 30, 1:10 carb ratio). Suspect that multiple dose adjustments will be needed. Would benefit from DM clinic referral post-d/c. Consult clinical unit educator and patient support associate. (4) Hyperlipidemia: severe. start high-intensity statin. consider dedicated triglyceride lowering agent. (5) Headache: suspect due to nitroglycerin usage. girlfriend had mentioned prior use of topamax and other agents but no prior h/o migraine headache. consider head imaging if headache was to worsen or persist. (6) Microcytosis: check iron studies in am. if normal then he likely has thalaseemia. (7) Hyponatremia: "pseudo"hyponatremia 2nd to elevated glucose levels. resolved. (8) DVT prophylaxis: has received heparin IV through the day defer DVT proph selection to critical care total time today over multiple visits - 50 minutes Subjective This am during chart rounds I noted the patient's 3rd troponin to be mildly elevated. EKG this am also showed dynamic inferior T wave changes that were markedly dif ferent than prior EKGs. I called and spoke with the patient's nurse asking her NOT to send the patient for stress testing. Fortunately he had not had any recurrent chest pain during the night. I placed the patient on heparin infusion for possible NSTEMI. Call placed to Dr El from cardiology who subsequently saw the patient in consult. He recommended heart cath to the patient. I saw the patient shortly after Dr El. Patient again reported no chest pain, dyspnea, nausea, vomiting or diaphoresis. FSBSs remained elevated; he continued to refuse insulin injections for the hyperglycemia. Girlfriend and the pt's father were at bedside during my rounds. The patient went to the denture laboratory technician where a 99% RCA occlusion was found. He underwent SIMRAN deployment. Post-cath the patient WAS agreeable to insulin administration. Later in the evening I attended the pt's heart alert when STEMI of the inferior wall occurred. Support given to the patient and pt's girlfriend/family during the 2nd enco unter. Review of Systems Constitutional: no fever and no chills Respiratory: no cough, no dyspnea and no dyspnea on exertion Cardiovascular: as per Subjective / HPI; no orthopnea, no paroxysmal nocturnal dyspnea and no edema Gastrointestinal: no abdominal pain, no nausea and no vomiting Physical Exam Constitutional: well developed and well nourished; no acute distress and no altered mental status ENMT: external ear and nose normal, oropharynx normal Respiratory: normal respiratory effort, lungs clear to auscultation Cardiovascular: Rate/Rhythm: regular rate and regular rhythm Heart Sounds: normal S1 and normal S2; no murmur Vessels: posterior tibial pulses present and dorsalis pedis pulses present; no JVD Extremities: no edema Gastrointestinal (Abdomen): normal bowel sounds, soft, nontender, no hepatosplenomegaly Psychiatric: A+Ox3, euthymic affect Results & Data Vital Signs (Past 12 Hours) Vital Signs Temp Pulse Pulse Pulse Resp BP Pulse Ox 07/09/19 08:00 66 07/09/19 07:06 36.6 C 75 18 122/84 95 07/09/19 04:46 36.4 C L 71 20 113/74 97 07/09/19 01:27 70 07/08/19 23:32 36.8 C 67 16 126/79 96 Laboratory Results Laboratory Results - last 24 hr 07/08/19 07/09/19 07/09/19 19:05 00:15 01:00 PT INR APTT PTT Ratio Activ Coag Time Kaolin Sodium Potassium Chloride Carbon Dioxide Anion Gap BUN Creatinine Est Cr Clr Drug Dosing Est GFR ( Amer) Est GFR (Non-Af Amer) BUN/Creatinine Ratio Glucose POC Glucose 412 H* 324 H* Estimat Average Glucose Hemoglobin A1c Calcium Troponin I 0.019 Triglycerides Cholesterol LDL Cholesterol, Calc VLDL Cholesterol, Calc HDL Cholesterol Cholesterol/HDL Ratio Beta-Hydroxybutyric Acd 07/09/19 07/09/19 07/09/19 06:30 06:59 06:59 PT INR APTT PTT Ratio Activ Coag Time Kaolin Sodium 140 Potassium 3.8 Chloride 105 Carbon Dioxide 28 Anion Gap 6.0 BUN 12 Creatinine 0.57 L Est Cr Clr Drug Dosing 184.3 Est GFR ( Amer) > 150.0 Est GFR (Non-Af Amer) 134.9 BUN/Creatinine Ratio 21.4 H Glucose 302 H* POC Glucose 279 H Estimat Average Glucose 390 Hemoglobin A1c 15.2 H Calcium 8.2 L Troponin I Triglycerides 320 H Cholesterol 217 H LDL Cholesterol, Calc 123 VLDL Cholesterol, Calc 64 HDL Cholesterol 30 Cholesterol/HDL Ratio 7 Beta-Hydroxybutyric Acd 3.38 H 07/09/19 07/09/19 07/09/19 06:59 06:59 06:59 PT 10.3 INR 1.0 APTT 24.8 PTT Ratio 0.9 Activ Coag Time Kaolin Sodium Potassium Chloride Carbon Dioxide Anion Gap BUN Creatinine Est Cr Clr Drug Dosing Est GFR ( Amer) Est GFR (Non-Af Amer) BUN/Creatinine Ratio Glucose POC Glucose Estimat Average Glucose Hemoglobin A1c Calcium Troponin I 0.048 H* Triglycerides Cholesterol LDL Cholesterol, Calc VLDL Cholesterol, Calc HDL Cholesterol Cholesterol/HDL Ratio Beta-Hydroxybutyric Acd 07/09/19 07/09/19 07/09/19 07:29 13:33 13:47 PT INR APTT PTT Ratio Activ Coag Time Kaolin 224 H Sodium Potassium Chloride Carbon Dioxide Anion Gap BUN Creatinine Est Cr Clr Drug Dosing Est GFR ( Amer) Est GFR (Non-Af Amer) BUN/Creatinine Ratio Glucose POC Glucose 297 H 291 H Estimat Average Glucose Hemoglobin A1c Calcium Troponin I Triglycerides Cholesterol LDL Cholesterol, Calc VLDL Cholesterol, Calc HDL Cholesterol Cholesterol/HDL Ratio Beta-Hydroxybutyric Acd 07/09/19 07/09/19 07/09/19 15:40 16:37 19:25 PT INR APTT 108.7 H* PTT Ratio 4.0 Activ Coag Time Kaolin 235 H Sodium Potassium Chloride Carbon Dioxide Anion Gap BUN Creatinine Est Cr Clr Drug Dosing Est GFR ( Amer) Est GFR (Non-Af Amer) BUN/Creatinine Ratio Glucose POC Glucose 379 H* Estimat Average Glucose Hemoglobin A1c Calcium Troponin I Triglycerides Cholesterol LDL Cholesterol, Calc VLDL Cholesterol, Calc HDL Cholesterol Cholesterol/HDL Ratio Beta-Hydroxybutyric Acd 07/09/19 21:22 PT INR APTT PTT Ratio Activ Coag Time Kaolin Sodium Potassium Chloride Carbon Dioxide Anion Gap BUN Creatinine Est Cr Clr Drug Dosing Est GFR ( Amer) Est GFR (Non-Af Amer) BUN/Creatinine Ratio Glucose POC Glucose 347 H* Estimat Average Glucose Hemoglobin A1c Calcium Troponin I Triglycerides Cholesterol LDL Cholesterol, Calc VLDL Cholesterol, Calc HDL Cholesterol Cholesterol/HDL Ratio Beta-Hydroxybutyric Acd PG Care Time/CCT Total # of Minutes Spent Total Time Spent with Patient: Total time spent is greater than 50% in coor dination of care (as documented) at patient's floor/unit and/or counseling patient: (1) ST elevation (STEMI) myocardial infarction Involved coronary artery: right coronary artery Qualified Code(s): I21.11 - ST elevation (STEMI) myocardial infarction involving right coronary artery (2) Hyperlipidemia Hyperlipidemia type: mixed hyperlipidemia Qualified Code(s): E78.2 - Mixed hyperlipidemia (3) CAD (coronary artery disease) Coronary Disease-Associated Artery/Lesion type: [place] artery [place] vs. transplanted heart: [place] heart Associated angina: with other forms of angina Qualified Code(s): I25.118 - Atherosclerotic heart disease of [place] coronary artery with other forms of angina pectoris (4) Headache Headache type: unspecified Headache chronicity pattern: acute headache Intractability: intractable Qualified Code(s): R51 - Headache
[2019-07-09] MEDS ORDERED: NiCARDipine HCL INJ 2.5 MG/ML 10 ML AMP ONE ×2 (11:47→18:36)
[2019-07-09] MEDS ORDERED: fentaNYL citrate 100 MCG/2 ML VIAL ONE ×4 (11:47→18:36)
[2019-07-09] MEDS ORDERED: MIDAZOLAM HCL 1 MG/ML 2ML VIAL ONE ×4 (11:47→18:35)
[2019-07-09] MEDS ORDERED: HEPARIN (PORCINE) 1000 UNIT/ML 10 ML (CATH LAB USE ONLY) ONE ×3 (11:47→20:56)
[2019-07-09] MEDS ORDERED: NITROGLYCERIN/D5W 100MCG/ML 20ML SYR ONE ×2 (11:48→18:36)
--- NOTE | 2019-07-09 12:26 | Pre Anesthesia Assessment ---
Date of Service July 09, 2019 Pre Sedation Assessment Vital Signs Temp Pulse Pulse Pulse Resp BP BP 07/09/19 08:00 66 07/09/19 07:06 36.6 C 75 18 122/84 07/09/19 04:46 36.4 C L 71 20 113/74 07/09/19 01:27 70 07/08/19 23:32 36.8 C 67 16 126/79 07/08/19 22:30 72 17 119/83 07/08/19 22:00 80 19 127/79 07/08/19 21:30 75 19 124/87 07/08/19 21:00 72 26 H 134/95 07/08/19 20:45 71 18 122/91 07/08/19 20:35 74 22 142/102 H 07/08/19 20:28 69 22 142/98 H 07/08/19 20:25 70 15 139/95 07/08/19 20:20 67 11 L 135/99 07/08/19 20:15 64 14 129/94 07/08/19 20:10 74 10 L 143/95 H 07/08/19 20:05 56 L 8 L 136/93 07/08/19 20:00 60 7 L 160/98 H 07/08/19 19:55 70 22 143/97 H 07/08/19 19:50 70 28 H 156/106 H 07/08/19 19:45 97 H 19 160/126 H 07/08/19 19:40 74 31 H 160/115 H 07/08/19 19:35 82 20 144/103 H 07/08/19 19:30 75 30 H 148/117 H 07/08/19 19:25 109 H 20 153/107 H 07/08/19 19:20 101 H 31 H 147/115 H 07/08/19 19:16 100 H 23 153/93 H 07/08/19 19:14 78 34 H 139/102 H 07/08/19 19:10 85 34 H 07/08/19 18:45 76 17 159/102 H 07/08/19 18:33 36.4 C L 69 18 155/98 H Pulse Ox 07/09/19 08:00 07/09/19 07:06 95 07/09/19 04:46 97 07/09/19 01:27 07/08/19 23:32 96 07/08/19 22:30 95 07/08/19 22:00 95 07/08/19 21:30 94 07/08/19 21:00 96 07/08/19 20:45 96 07/08/19 20:35 96 07/08/19 20:28 95 07/08/19 20:25 94 07/08/19 20:20 94 07/08/19 20:15 98 07/08/19 20:10 85 L 07/08/19 20:05 70 L 07/08/19 20:00 77 L 07/08/19 19:55 99 07/08/19 19:50 99 07/08/19 19:45 100 07/08/19 19:40 100 07/08/19 19:35 89 L 07/08/19 19:30 90 07/08/19 19:25 98 07/08/19 19:20 07/08/19 19:16 07/08/19 19:14 07/08/19 19:10 07/08/19 18:45 07/08/19 18:33 97 Cardiovascular RRR, no murmur, no edema Respiratory normal respiratory effort, lungs clear to auscultation Pre-Sedation Airway Assessment Smoking Status: Never smoker Hx Sleep Apnea: No Hx Difficult Intubation: No Short, Thick Neck: No Thyromental Distance: > or= 3.5 Finger Breadths Oral Cavity: + WNL Mallampati Class: III Procedure Planning Contraindications for Sedation: none Current Medications Reviewed: Yes Notes The planned sedation has been discussed with the patient. Informed Consent was obtained. I have identified the patient, determined the appropriateness of sedation and have assessed the patient immediately prior to the procedure. All medicine(s) and interventions are by my order.
[2019-07-09] MEDS ORDERED: NITROGLYCERIN 2% OINTMENT 30GM TUBE ONE ×2 (13:01→14:11)
--- NOTE | 2019-07-09 13:48 | Post Anesthesia Assessment ---
Date of Service July 09, 2019 Post Sedation Assessment Vital Signs Temp Pulse Pulse Pulse Resp BP BP 07/09/19 12:00 36.8 C 84 20 135/98 07/09/19 08:00 66 07/09/19 07:06 36.6 C 75 18 122/84 07/09/19 04:46 36.4 C L 71 20 113/74 07/09/19 01:27 70 07/08/19 23:32 36.8 C 67 16 126/79 07/08/19 22:30 72 17 119/83 07/08/19 22:00 80 19 127/79 07/08/19 21:30 75 19 124/87 07/08/19 21:00 72 26 H 134/95 07/08/19 20:45 71 18 122/91 07/08/19 20:35 74 22 142/102 H 07/08/19 20:28 69 22 142/98 H 07/08/19 20:25 70 15 139/95 07/08/19 20:20 67 11 L 135/99 07/08/19 20:15 64 14 129/94 07/08/19 20:10 74 10 L 143/95 H 07/08/19 20:05 56 L 8 L 136/93 07/08/19 20:00 60 7 L 160/98 H 07/08/19 19:55 70 22 143/97 H 07/08/19 19:50 70 28 H 156/106 H 07/08/19 19:45 97 H 19 160/126 H 07/08/19 19:40 74 31 H 160/115 H 07/08/19 19:35 82 20 144/103 H 07/08/19 19:30 75 30 H 148/117 H 07/08/19 19:25 109 H 20 153/107 H 07/08/19 19:20 101 H 31 H 147/115 H 07/08/19 19:16 100 H 23 153/93 H 07/08/19 19:14 78 34 H 139/102 H 07/08/19 19:10 85 34 H 07/08/19 18:45 76 17 159/102 H 07/08/19 18:33 36.4 C L 69 18 155/98 H Pulse Ox 07/09/19 12:00 98 07/09/19 08:00 07/09/19 07:06 95 07/09/19 04:46 97 07/09/19 01:27 07/08/19 23:32 96 07/08/19 22:30 95 07/08/19 22:00 95 07/08/19 21:30 94 07/08/19 21:00 96 07/08/19 20:45 96 07/08/19 20:35 96 07/08/19 20:28 95 07/08/19 20:25 94 07/08/19 20:20 94 07/08/19 20:15 98 07/08/19 20:10 85 L 07/08/19 20:05 70 L 07/08/19 20:00 77 L 07/08/19 19:55 99 07/08/19 19:50 99 07/08/19 19:45 100 07/08/19 19:40 100 07/08/19 19:35 89 L 07/08/19 19:30 90 07/08/19 19:25 98 07/08/19 19:20 07/08/19 19:16 07/08/19 19:14 07/08/19 19:10 07/08/19 18:45 07/08/19 18:33 97 Recovery Score Activity: Moves 4 extremities Respiration: Deep Breath/Cough Circulation: +/-20% PreAnes Value Consciousness: Fully Awake Oxygen Saturation: O2 needed for >90% Discharge Sedation Level of Care: Fast Track Phase II Post Sedation Plan On clinical assessment, the patient appears to have tolerated the sedation without complications. Patient is recovering as anticipated. Patient will continue to be monitored by nursing and may be discharged when sedation discharge criteria are met per below protocol. Upon Completions of procedure and additional 15 minutes continue every 5 minute vital signs and the P.A.R. score; then discharge to a Phase I or Fast Track to Phase II per the following guidelines: * Discharge Patient to appropriate Phase II area if PAR is 8 or greater or return to pre- procedure baseline. The post - procedure orders will be as directed. * If PAR score is less than 8 or not return to pre-procedure baseline then patient will follow Phase I monitoring till PAR is reached for Phase II. The Phase I may be done in procedure room or may call to secure a Phase I area. * If naloxone or flumazenil are used for reversal, hold in Phase I for continued monitoring from when last reversal dose was given for a minimum of 60 minutes or longer pending the nurse and/or physician discretion of patient condition before discharge to Phase II. Please call the Sedation Physician to re-evaluate and complete post-note for discharge to Phase II area. Do NOT discharge from procedure sedation or Phase 1 until post- sedation evaluation note is complete by procedure /sedation MD Sedation Discharge Instructions to be given to the patient at discharge to home.
--- NOTE | 2019-07-09 13:50 | Cardiac Catheterization ---
[facility] Data: Reading Professor Cardiac Status Clinical evaluation leading to the procedure CAD Presenation: Non STEMI Anginal Classification: CCS IV Heart Failure: No Cardiogenic Shock within 24 Hours: No Cardiac Arrest within 24 Hours: No Imaging Studies Past 6 Months: No Stress Studies Past 6 Months: No Diagnostic Physicians Name: Felix El MD Status: Elective Closure Device Closure Device: Radial Band Recommendations: PCI without planned CABG PCI Indication: PCI for high risk Non-SHANICE Lesion Segment Name: mid RCA Culprit Artery: Yes Stenosis Prior to Rx (%): 99 Chronic Total Occlusion: No IVUS: No FFR: No Pre-Procedure EDIN Flow: 3 Previously Treated Lesion: No Lesion Complexity: Non-High/Non-C Lesion Length (mm): 28 Thrombus Present: Yes Bifurcation Lesion: No Guidewire Across Lesion: Stenosis Post-Procedure (%): 0 Post-Procedure EDIN Flow: 3 Devices(s) Deployed: Yes Yes Intraprocedure Events Significant Disection: No Perforation: No Cardiac Cath Procedure Full Procedure Date July 09, 2019 Pre-Procedure Diagnosis Pre-Procedure Diagnosis: Non STEMI AUC Score AUC Score: 8 Post-Procedure Diagnosis Post-Procedure Diagnosis: Severe CAD and Successful PCI Procedure(s) Performed Procedure(s) Performed: Coronary Angiography, Left Heart Cath, Drug Eluting Stent, Ultrasound Guided Vascular Access, Femoral Artery Angiography and Radial Artery Angiography Translator/Interpreter Felix El MD Log Rafter(s) Glunt Estimated Blood Loss Estimated Blood Loss: 10 Medication(s) Medication(s): Fentanyl, Heparin, Lidocaine 1%, Nicardipine, Nitroglycerin and Versed Medication(s): Ticagrelor Summary of Findings Indication: ACS Access: 6 Fr slender right radial artery under ultrasound guidance, 6 Fr right common femoral artery Catheters: Gladys, 4 Fr JR4. 6 Fr JR4 guide Findings: LM -moderate caliber, angiographically normal LAD -moderate caliber vessel, 40 to 50% mid segment disease just after takeoff of moderate caliber second diagonal, distal vessel tapers to apex. Moderate caliber first and second diagonals with luminal irregularities. Circumflex -moderate caliber, gives off 2 small OM's without significant disease RCA -large caliber vessel, anterior takeoff, diffuse mid segment disease with 99% stenosis at takeoff of acute marginal. 30 to 40% stenosis in proximal aspect of large right PLB LVEDP -12 Initial access via right radial artery. With 5 Fr Gladys significant spasm and difficulty removing catheter. Able to cannulate RCA with 4 Fr diagnostic. Unable to pass 5 Fr guide through forearm and 6 Fr sheath placed to right REHABILITATION INSPECTOR. -- PCI -- Antithrombotic therapy: Heparin, ticagrelor Procedure: RCA cannulated with JR4 guide Collet Gluer 50 wire passed across lesion into distal vessel Mid RCA lesion predilated with 3.0 compliant balloon Dilated lesion stented with 4.0 x 34 mm Rosas drug-eluting stent Stent post-dilated with 5.0 noncompliant balloon to high atmospheres IC vasodilators administered for spasm Post procedure EDIN 3 flow, stent well expanded with minimal residual stenosis and no apparent cardiac complications. Small right acute marginal occluded post procedure. Arterial Closure: TR band, AngioSeal Summary: 1. Severe single vessel coronary artery disease - 99% mid RCA - 40-50% mid LAD - 30-40% prox RPLB 2. Normal intracardiac filling pressure 3. Successful PCI of mid RCA with single SIMRAN (4.0 x 34 mm Rosas; post-dilated with 5.0 NC). 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
[2019-07-09] MEDS ORDERED: TICAGRELOR 90 MG TAB PO ONE (13:53)
[2019-07-09] MEDS ORDERED: MoRPHine SULFATE 2 MG/ML CARP IV PRN (14:27)
[2019-07-09] MEDS ORDERED: SODIUM CHLORIDE 0.9% 1000ML 1,000 ML IV SCH (14:30)
[2019-07-09 16:14] LABS: Partial Thromboplastin Time 108.7 Seconds (21.0-31.0)
[2019-07-09] MEDS ORDERED: Nursing to Pharmacy Communication ONE (16:52)
--- NOTE | 2019-07-09 19:02 | Cardiology Progress Note ---
Date of Service July 09, 2019 Assessment & Plan (1) ST elevation (STEMI) myocardial infarction: He underwent RCA PCI earlier today. He is once again experiencing angina with inferior ST elevations. Morphine was administered as above. He declined nitroglycerin and further morphine administration. Heparin was not readily available on the floor but recommended and will be given in the lab. Emergent cardiac catheterization was recommended and discussed with patient and family who was present at the bedside (father, brother, stepmother, and girlfriend). Heart alert was called. Defibrillation pads were placed. He has already received anti-platelet therapy earlier today, including Brilinta which was reportedly given in the cardiac catheterization lab following PCI (discussed with nursing staff). Disposition: Emergent cardiac catheterization. Dr. Qureshi presented to the bedside and patient care was discussed with him. Patient care discussed with Dr. El, second crusher. Highly complex medical issues. 44 minutes critical care time spent, including reviewing of chart, studies, counseling patient/family, coordinating care. Subjective Was notified by Dr. El that nursing staff had performed an ECG concerning for ST-elevation myocardial infarction. A presented to the bedside immediately. Patient had severe headache ever since receiving nitroglycerin paste. He also upon further questioning, admitted that he has substernal chest discomfort, similar to his presentation which was that of acute coronary syndrome. He underwent RCA PCI earlier today. ECG was then reviewed demonstrated sinus with inferior ST elevation, which was new compared to prior ECGs. Heart alert was called. Dr. El was notified as well. Patient declined any further nitroglycerin due to his severe headache. Morphine 2 mg IV x1 was given. Several minutes later, he continued to have similar pain without relief. Further morphine was offered but he declined. He denied shortness of breath or radiation of the pain. There was no reported syncope. The initial ECG was performed by nursing staff due to changes in heart rate noted on monitor. He was having more profound episodes of sinus bradycardia but no significant pauses or arrhythmia was reported. Review of systems: As above. He otherwise did not offer any other symptoms. He did not fully participate in conversation. Physical Exam Physical Exam: Focused exam was notable for: General: He did not appear to be in distress. He was alert but not openly engaging in conversation. He did answer questions when asked. HEENT: Pupils were equal and round. Cardiac: Regular but bradycardic. No audible murmur. Lungs: Clear to auscultation. Extremities: Right groin catheterization access site was without hematoma. 2+ dorsalis pedis pulses bilaterally. No cyanosis. Results & Data Vital Signs (Past 12 Hours) Vital Signs Temp Pulse Pulse Pulse Resp BP Pulse Ox 07/09/19 18:44 49 L 12 120/74 98 07/09/19 18:43 53 L 12 137/85 98 07/09/19 18:00 79 146/102 H 07/09/19 17:38 36.4 C L 44 L 18 148/89 H 95 07/09/19 17:00 52 L 127/79 93 07/09/19 16:30 49 L 121/77 95 07/09/19 16:15 49 L 122/86 07/09/19 16:00 58 L 122/86 07/09/19 15:53 36.7 C 54 L 18 123/80 94 07/09/19 15:41 58 L 118/79 94 07/09/19 14:56 52 L 16 106/78 97 07/09/19 14:41 49 L 16 123/78 99 07/09/19 14:26 36.5 C 50 L 16 120/78 99 07/09/19 12:00 36.8 C 84 20 135/98 98 07/09/19 08:00 66 07/09/19 07:06 36.6 C 75 18 122/84 95 Diagnostic Findings ECG was personally reviewed, demonstrating inferior ST elevation, which was new. Medications Administered Current Inpatient Medications Acetaminophen (Tylenol) 650 mg PO Q4H PRN PRN Reason: Mild Pain (scale 1-3) Stop: 08/08/19 14:24 Aspirin (Aspirin Chew) 81 mg PO [facility] Stop: 08/08/19 08:59 Last Admin: 07/09/19 09:27 Dose: 81 mg Documented by: Atorvastatin Calcium (Lipitor) 40 mg PO [facility] Stop: 08/09/19 08:59 Dextrose (Dextrose 50%) 25 - 50 ml IV UD PRN; Protocol PRN Reason: Hypoglycemia Protocol Stop: 08/07/19 23:27 Glucagon (Glucagen) 1 mg SQ UD PRN; Protocol PRN Reason: Hypoglycemia Protocol Stop: 08/07/19 23:27 Glucose (Dex4 Glucose) 4 - 8 tabs PO UD PRN; Protocol PRN Reason: Hypoglycemia Protocol Stop: 08/07/19 23:27 Glucose (Glucose 40%) 15 - 30 gm PO UD PRN; Protocol PRN Reason: Hypoglycemia Protocol Stop: 08/07/19 23:27 Lactated Ringer's (Lr) 1,000 mls @ 125 mls/hr IV .Q8H [place] Stop: 08/07/19 23:27 Last Admin: 07/09/19 16:40 Dose: 125 mls/hr Documented by: Sodium Chloride (Nss 1000ml) 1,000 mls @ 100 mls/hr IV .Q10H ON LICENSE OF [facility] Stop: 07/09/19 21:59 Last Admin: 07/09/19 14:40 Dose: 100 mls/hr Documented by: Insulin Aspart (Novolog Flexpen) 0 units SC ACHS ON LICENSE OF [facility] Stop: 08/08/19 00:00 Last Admin: 07/09/19 17:13 Dose: 8 units Documented by: Insulin Glargine (Lantus Solostar Pen) 20 units SC QAM ON LICENSE OF [facility] Stop: 08/08/19 08:59 Last Admin: 07/09/19 09:04 Dose: Not Given Documented by: Miscellaneous (Carbohydrates For Hypoglycemia) 15 - 30 gm PO UD PRN PRN Reason: Hypoglycemia Treatment Stop: 08/07/19 23:27 Morphine Sulfate (Morphine Sulfate) 4 mg IV Q2H PRN PRN Reason: Chest Pain Stop: 07/22/19 23:27 Last Admin: 07/09/19 14:51 Dose: 4 mg Documented by: Morphine Sulfate (Morphine Sulfate) 1 - 4 mg IV Q2M PRN PRN Reason: Severe Pain (7,8,9,10) Stop: 07/23/19 14:26 Nitroglycerin (Nitrostat) 0.4 mg SL UD PRN PRN Reason: Chest Pain Stop: 08/07/19 23:27 Ondansetron HCl (Zofran) 4 mg IV Q6H PRN PRN Reason: Nausea And Vomiting Stop: 08/08/19 14:24 Ticagrelor (Brilinta) 90 mg PO BID ON LICENSE OF [facility] Stop: 08/08/19 20:59 PG Care Time/CCT Total # of Minutes Spent Total Time Spent with Patient: Total time spent is greater than 50% in coordination of care (as documented) at patient's floor/unit and/or counseling patient:
[2019-07-09] MEDS ORDERED: INSULIN ASPART 100 UNITS/ML 3 ML PEN SC SCH (21:00)
--- NOTE | 2019-07-09 21:29 | Cardiac Catheterization ---
ACC Data: Nursery Attendant Cardiac Status Clinical evaluation leading to the procedure CAD Presenation: STEMI Anginal Classification: CCS IV Heart Failure: No Cardiogenic Shock within 24 Hours: No Cardiac Arrest within 24 Hours: No Imaging Studies Past 6 Months: No Stress Studies Past 6 Months: No Diagnostic Physicians Name: Felix El MD Status: Emergency Closure Device Percutaneous Entry Location: Femoral Closure Device: Mynx Recommendations: PCI without planned CABG PCI Indication: Immediate PCI for STEMI First Noted: First EKG Lesion Segment Name: mid to distal RCA Culprit Artery: Yes Stenosis Prior to Rx (%): 80 Chronic Total Occlusion: No IVUS: No FFR: No Pre-Procedure EDIN Flow: 1 Previously Treated Lesion: Timeframe: less than 1 month Treated with Stent: Yes In-Stent Restenosis: No In-Stent Thrombosis: No Stent Type: SIMRAN Yes Lesion Complexity: High/C Lesion Length (mm): 70 Thrombus Present: Yes Bifurcation Lesion: No Guidewire Across Lesion: Stenosis Post-Procedure (%): 0 Post-Procedure EDIN Flow: 3 Devices(s) Deployed: Yes Yes Lesion #2 Culprit Artery: Yes Intraprocedure Events Significant Disection: Yes Perforation: No Cardiac Cath Procedure Full Procedure Date July 09, 2019 Pre-Procedure Diagnosis Pre-Procedure Diagnosis: STEMI AUC Score AUC Score: 9 Post-Procedure Diagnosis Post-Procedure Diagnosis: Severe CAD and Successful PCI Procedure(s) Performed Procedure(s) Performed: Coronary Angiography and Drug Eluting Stent Warp Tester Felix El MD Supervisor Cigar Making Hand(s) Win Estimated Blood Loss Estimated Blood Loss: 10 Medication(s) Medication(s): Heparin, Lidocaine 1%, Nicardipine and Nitroglycerin Summary of Findings Indication: STEMI Patient brought back to Nursery Attendant today after prior PCI with SIMRAN to mid RCA ear lier in the day. Later in the afternoon developed worsening chest pain and EKG showed new inferior ST elevations. Access: 6 Fr left common femoral artery Catheters: JL4 guide Findings: RCA -patient found to have a spiral dissection extending from distal aspect of mid RCA stent extending all the way into large right PLB with EDIN I-II flow. -- PCI -- Antithrombotic therapy: Heparin Procedure: RCA cannulated with JR4 guide Long BMW wire passed across lesion into distal PLB Intraluminal position confirmed via injection through OTW balloon Stents placed from proximal PLB extending all the way back to mid RCA and overlapping with initial stent (2.5 x 30, 3.0 x 38, 3.5 x 38 [place] SIMRAN). Repeat angiography revealed residual dissection at the end of the most distal stent A final stent (2.25 x 18 Ros[place]) placed to right PLB overlapping with distal most prior stent Mid to distal stents postdilated with 4.0 NC balloon IC vasodilators administered for spasm Post procedure EDIN 2-3 flow, stents well expanded with minimal residual stenosis. Residual dissection/thrombus in proximal aspect of large acute marginal, marginal with EDIN II flow Arterial Closure: Mynx Summary: 1. Inferior STEMI/acute RCA dissection extending from mid RCA stent into right PLB 2. Successful PCI of mid RCA to right PLB with 4 overlapping stents (3.5 x 38, 3.0 x 38, 2.5 x 30, 2.25 x 18 [place] --now with a total of 5 stents to RCA following initial mid RCA stenting earlier in the day [4.0 x 34]). Recommendations: Admit to ICU for continued monitoring Previously loaded with Brilinta Continue dual-antiplatelet therapy for at least 1 year. Trend troponins until peak, Check Echo Hemodynamics Rest Ao:: 136/71/101 Final Ao: 140/83/109 LV: -- Recommendations Recommendations: PCI without planned CABG Specimens Specimens: None Radiation Exposure (mGy) 2372 Contrast (mls) 140 Fluids (cc crystalloids) Fluids (cc crystalloids): 70 Drains Drains: none Anesthesia local Procedural Complication(s) Dissection form prior procedure Disposition PCU
[2019-07-09] MEDS: INSULIN GLARGINE SOLOSTAR 100 UNITS/ML 3 ML PEN SC SCH (22:00)
[2019-07-09] MEDS: TICAGRELOR 90 MG TAB PO SCH (22:00)
--- NOTE | 2019-07-09 23:00 | Magnetic Resonance Report ---
MR brain wo con HISTORY: Mental status change. Headache. cardiac cath x2 today, severe headache TECHNIQUE: Multiplanar multisequence MRI of the brain was performed without the use of contrast. COMPARISON STUDY: None. FINDINGS: Diffusion images show no evidence for acute ischemic event. Images do demonstrate an expansile lesion of the sella measuring 2.5 x 2.5 x 2.6 cm. This displaces t he optic chiasm in a superior fashion with displacement of the infundibulum to the left. . There is soft tissue encasement of the right cavernous sinus. There is partial encasement of the le ft cavernous sinus. 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 Meningioma is a secondary c onsideration. The remainder the study is unremarkable. The ventricular system is midline. No abnormal foci of incre ased signal are identified. Possible additional lesion posterior to the medulla measuring 1.2 cm. A fully enhanced scan should be performed for further evaluation. IMPRESSION: 1. Soft tissue expansile mass within the sella measuring 2.5 x 2.6 cm. 2. This demonstrates encasement of the right cavernous sinus with partial encasement changes on the l eft. 3. Localized displacement of the infundibulum and optic chiasm as described. 4. 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 5. Remainder the study is remarkable for a potential soft tissue mass posterior to the medulla measur ing 1.2 cm.. 6. A repeat fully enhanced scan when the patient is able is recommended as follow-up. 7. No evidence for an acute ischemic event. The above report was generated using voice recognition software. It may contain grammatical, syntax or spelling errors. Electronically signed by: Bhavik Romano M.D. 07/09/2019 10:59 PM
[2019-07-10 04:53] LABS: BUN Creatinine Ratio 17.4 (10-20); Blood Urea Nitrogen 9 mg/dl (7-18); Calcium 8.6 mg/dl (8.5-10.1); Carbon Dioxide 23 mmol/L (21-32); Chloride 101 mmol/L (98-107); Creatinine Clr Calc Pharmacy 210.1 ml/min; Est GFR (African American) > 150.0; Est GFR (Non-African American) 142.4; Glucose 259 mg/dl (70-99); Potassium 3.8 mmol/L (3.5-5.1); Sodium 133 mmol/L (136-145)
[2019-07-10 04:58] LABS: Ferritin 553.1 ng/ml (8-388); Iron 25 mcg/dl (35-175); Transferrin 244 mg/dl (200-360); Transferrin Percent Saturation 7 % (20-50)
[2019-07-10] MEDS ORDERED: MODERATE STRESS LEVEL ONE (05:27)
[2019-07-10] MEDS ORDERED: INSULIN PROTOCOL GOAL RANGE ONE (05:27)
[2019-07-10] MEDS ORDERED: INSULIN REGULAR 250 UNITS in SODIUM CHLORIDE 0.9% 247.5 ML IV SCH ×2 (05:30→06:00)
[2019-07-10] MEDS ORDERED: NovoLIN-R BOLUS FROM BAG IV ONE (06:00)
[2019-07-10] MEDS: TICAGRELOR 90 MG TAB PO SCH ×2 (07:30→20:48)
[2019-07-10] MEDS: ASPIRIN 81 MG CHEW PO SCH (07:31)
[2019-07-10] MEDS: ATORVASTATIN 40 MG TAB PO SCH (07:42)
[2019-07-10] MEDS: INSULIN ASPART 100 UNITS/ML 3 ML PEN SC SCH ×4 (07:49→20:41)
--- NOTE | 2019-07-10 08:16 | Cardiology Progress Note ---
Date of Service July 10, 2019 Assessment & Plan (1) CAD (coronary artery disease): 2. STEMI secondary to RCA dissection post initial PCI for severe RCA diseasenow post a total of 5 SIMRAN 3. Mild to moderate LV dysfunction with inferior akinesis 4. Headache 5. Poorly controlled diabetes on insulin infusion 6. Intracranial mass, question pituitary macroadenoma 7. Dyslipidemia 8. Hyponatremia Chest pain resolved. Hemodynamically and electrically stable overnight. No signs of heart failure on exam. No apparent access site complications. Continue DAPT with aspirin, ticagrelor Start low-dose beta-samson as BP/heart rate allow. Possible KENIA tomorrow Continue high intensity statin Trend troponin until peak From a cardiac standpoint can be transferred back to PCU later today if other medical issues stable Appreciate ICU and hospital medicine team care. Subjective Still holding head this morning but headache improved. No chest pain this morning. Telemetry reviewed -- no ventricular ectopy overnight. Brain MRI reviewed -- no bleed or embolic concerns. Mass noted - ? pituitary macroadenoma. Quick Echo review - no pericardial effusion. Mild to moderate LV dysfunction with inferior akinesis. Review of Systems Review of Systems: All systems reviewed & are unremarkable except as noted in HPI & below Physical Exam Physical Exam: General: Uncomfortable, holding head, no acute distress HEENT: Sclerae anicteric, mucous membranes moist Lungs: Clear to auscultation bilaterally, no rhonchi or wheezes Cardiac: Regular rate and rhythm, no murmurs. No JVD. Abdomen: Soft, nontender, nondistended, positive bowel sounds. Extremities: Warm, well perfused, no edema. Right radial artery access site with no ecchymosis, hematoma. Distal pulse and sensation intact. Bilateral common femoral artery access sites without hematoma or ecchymosis. Pulses intact. Skin: No rashes or lesions. Neuro: Cranial nerves II through XII grossly intact, no focal motor/sensory deficits noted Psych: Alert orient x3, normal affect and mood Results & Data Vital Signs (Past 12 Hours) Vital Signs Temp Pulse Resp BP Pulse Ox 07/10/19 06:45 64 7 L 98 07/10/19 06:30 64 16 97 07/10/19 06:15 59 L 12 96 07/10/19 06:00 70 18 130/94 96 07/10/19 05:45 62 0 L 95 07/10/19 05:30 65 22 95 07/10/19 05:15 80 31 H 95 07/10/19 05:00 69 29 H 123/79 95 07/10/19 04:45 77 12 93 07/10/19 04:30 71 21 96 07/10/19 04:15 82 21 94 07/10/19 04:00 71 22 112/81 94 07/10/19 03:45 37.4 C 76 12 92 07/10/19 03:30 71 14 92 07/10/19 03:17 60 14 124/72 96 07/10/19 03:06 65 16 126/89 95 07/10/19 03:00 56 L 14 95 07/10/19 02:45 73 16 95 07/10/19 02:30 81 14 97 07/10/19 02:15 74 13 113/76 93 07/10/19 02:00 67 16 109/77 92 07/10/19 01:45 62 17 95 07/10/19 01:30 68 14 133/63 90 07/10/19 01:15 59 L 15 111/79 96 07/10/19 01:00 64 12 127/84 92 07/10/19 00:45 66 9 L 136/79 94 07/10/19 00:30 74 15 115/78 94 07/10/19 00:15 60 14 136/98 97 07/10/19 00:00 61 14 133/82 97 07/09/19 23:46 62 25 H 120/65 96 07/09/19 23:45 63 28 H 97 07/09/19 23:31 66 14 133/92 98 07/09/19 23:30 70 17 97 07/09/19 23:15 36.8 C 62 22 135/94 98 07/09/19 22:00 64 31 H 133/95 98 07/09/19 21:45 61 25 H 143/83 H 96 07/09/19 21:30 64 23 132/82 95 07/09/19 21:16 54 L 22 130/87 97 07/09/19 21:15 60 21 96 07/09/19 21:01 53 L 20 139/80 97 07/09/19 21:00 61 32 H 96 07/09/19 20:45 56 L 25 H 141/87 H 98 07/09/19 20:30 63 19 139/87 98 07/09/19 20:15 81 17 143/96 H 95 PG Care Time/CCT Total # of Minutes Spent Total Time Spent with Patient: Total time spent is greater than 50% in coordination of care (as documented) at patient's floor/unit and/or counseling patient: (1) CAD (coronary artery disease) Associated angina: with other forms of angina Coronary Disease-Associated Artery/Lesion type: [place] artery [place] vs. transplanted heart: [place] heart Qualified Code(s): I25.118 - Atherosclerotic heart disease of [place] coronary artery with other forms of angina pectoris
[2019-07-10] MEDS: INSULIN GLARGINE SOLOSTAR 100 UNITS/ML 3 ML PEN SC SCH (09:25)
--- NOTE | 2019-07-10 10:55 | Critical Care Consultation ---
Date of Consultation July 10, 2019 Assessment & Plan (1) Headache: PLAN: Neuro: Headache -Possibly related to pituitary findings Pituitary abnormality -Repeat MRI with gadolinium -Check FSH/LH, TSH, procalcitonin, testosterone, 24-hour urine cortisol, cortisol at 8 AM tomorrow, insulin like growth factor I CV: Coronary artery disease: Right coronary [place] heart Coronary artery dissection: Right coronary -Starting beta-samson 12.5 mg twice daily -Dual antiplatelet therapy, high-dose statin therapy Fluids/Renal: Factitious hyponatremia secondary to elevated blood sugar GI/Nutrition: Heart healthy type II diabetic diet Heme: Microcytosis DVT prophylaxis: Lovenox Endocrine: ICU hyperglycemia protocol Insulin infusion for severe uncontrolled diabetes -Per cardiology report patient had not been taking insulin secondary to believe of poor science behind indication Vascular access: Peripheral IVs Code Status: Full Patient is stable for downgrade out of the ICU. Present on Admission?: No (2) Pituitary abnormality: Present on Admission?: No (3) CAD (coronary artery disease): Present on Admission?: Yes (4) Hyperlipidemia: Present on Admission?: Yes (5) Severe uncontrolled diabetes mellitus: Present on Admission?: Yes (6) Coronary artery dissection: Present on Admission?: No History of Present Illness Attending Physician: Tania Estes DO Patient is a 33-year-old male with a significant family history of chest pain and early cardiac disease. Is admitted through the ED for chest pain was found to have mild elevation in his troponins and was taken for an elective cardiac cath. Found to have a 99% stenosed RCA which he received one drug-eluting stent. In the postprocedural. He was noted to have worsening chest pain, he went back to cardiac Weekend Caregiver after he had changes noted on his EKG and was found to have a dissection distal from the previously placed stent and received multiple stents subsequent. During this time he also has had a significant headache, for concern of possible embolic phenomenon he underwent an MRI and was found to have a incidental finding in the sella turcica. During my evaluation today the patient complains of being rather sleepy he arouses easily. He denies chest pain shortness of breath. Allergies Allergy/AdvReac Type Severity Reaction Status Date / Time bee venom protein (honey bee) Allergy Severe HIVES Verified 07/07/19 03:45 pollen extracts Allergy Mild UNKNOWN Verified 07/07/19 03:45 Home Medications Home Medications Medication Instructions Recorded Confirmed Type No Known Home Medications 07/08/19 07/08/19 History Patient History Medical History Diabetes mellitus (Chronic) Surgical History No pertinent past surgical history Family History Other Cancer Diabetes Heart disease Hypertension Social History Preferred Language: Polish Intelligence Chief Required: No Beliefs That Will Affect Care: None Current Living Situation: Significant Other Feels Safe at Home: Yes Smoking Status: Never smoker Hx Alcohol Use: No Hx Substance Use: No Review of Systems Review of Systems: All systems reviewed & are unremarkable except as noted in HPI & below Denies chest pain or shortness of breath Physical Exam Physical Exam: General: Well-nourished middle-aged male who appears older than his stated age I have reviewed the recorded vital signs Neurological: RASS score: 0, Moves all 4 extremities, Psychological: GCS 15 following complex commands Eyes: Pupils are equal, round and reactive to light, anicteric sclera. Symmetrical lids. HENT: Oropharynx is clear, mucous membranes are moist. Neck: Supple. Symmetric. trachea midline. No thyromegaly. Cardiovascular: Normal peripheral perfusion. Distal pulses and capillary refill intact. No JVD. Respiratory: Respirations are non-labored, no accessory muscle use. Breath sounds are equal. Gastrointestinal: Soft. Non-distended. Lymphatic: No cervical lymphadenopathy. Musculoskeletal: No deformity. No clubbing nor cyanosis. Results & Data Vital Signs (Past 12 Hours) Vital Signs Temp Pulse Resp BP Pulse Ox 07/10/19 09:00 63 29 H 168/111 H 98 07/10/19 08:00 37.7 C H 57 L 13 130/81 98 07/10/19 07:00 61 18 110/72 94 07/10/19 06:45 64 7 L 98 07/10/19 06:30 64 16 97 07/10/19 06:15 59 L 12 96 07/10/19 06:00 70 18 130/94 96 07/10/19 05:45 62 0 L 95 07/10/19 05:30 65 22 95 07/10/19 05:15 80 31 H 95 07/10/19 05:00 69 29 H 123/79 95 07/10/19 04:45 77 12 93 07/10/19 04:30 71 21 96 07/10/19 04:15 82 21 94 07/10/19 04:00 71 22 112/81 94 07/10/19 03:45 37.4 C 76 12 92 07/10/19 03:30 71 14 92 07/10/19 03:17 60 14 124/72 96 07/10/19 03:06 65 16 126/89 95 07/10/19 03:00 56 L 14 95 07/10/19 02:45 73 16 95 07/10/19 02:30 81 14 97 07/10/19 02:15 74 13 113/76 93 07/10/19 02:00 67 16 109/77 92 07/10/19 01:45 62 17 95 07/10/19 01:30 68 14 133/63 90 07/10/19 01:15 59 L 15 111/79 96 07/10/19 01:00 64 12 127/84 92 07/10/19 00:45 66 9 L 136/79 94 07/10/19 00:30 74 15 115/78 94 07/10/19 00:15 60 14 136/98 97 07/10/19 00:00 61 14 133/82 97 07/09/19 23:46 62 25 H 120/65 96 07/09/19 23:45 63 28 H 97 07/09/19 23:31 66 14 133/92 98 07/09/19 23:30 70 17 97 07/09/19 23:15 36.8 C 62 22 135/94 98 Laboratory Results 07/10/19 07/10/19 07/10/19 Range/Units 09:27 08:32 07:09 APTT (21.0-31.0) Seconds PTT Ratio Activ Coag Time Kaolin (94-140) SECONDS Sodium (136-145) mmol/L Potassium (3.5-5.1) mmol/L Chloride (98-107) mmol/L Carbon Dioxide (21-32) mmol/L Anion Gap (3-11) BUN (7-18) mg/dl Creatinine (0.6-1.4) mg/dl Est Cr Clr Drug Dosing ml/min Est GFR ( Amer) Est GFR (Non-Af Amer) BUN/Creatinine Ratio (10-20) Glucose (70-99) mg/dl POC Glucose 215 H 216 H 231 H (70-99) Calcium (8.5-10.1) mg/dl Iron (35-175) mcg/dl Transferrin (200-360) mg/dl Transferrin % Sat (20-50) % Ferritin (8-388) ng/ml 07/10/19 07/09/19 07/09/19 Range/Units 04:15 21:22 19:25 APTT (21.0-31.0) Seconds PTT Ratio Activ Coag Time Kaolin 235 H (94-140) SECONDS Sodium 133 L (136-145) mmol/L Potassium 3.8 (3.5-5.1) mmol/L Chloride 101 (98-107) mmol/L Carbon Dioxide 23 (21-32) mmol/L Anion Gap 9.0 (3-11) BUN 9 (7-18) mg/dl Creatinine 0.50 L (0.6-1.4) mg/dl Est Cr Clr Drug Dosing 210.1 ml/min Est GFR ( Amer) > 150.0 Est GFR (Non-Af Amer) 142.4 BUN/Creatinine Ratio 17.4 (10-20) Glucose 259 H (70-99) mg/dl POC Glucose 347 H* (70-99) Calcium 8.6 (8.5-10.1) mg/dl Iron 25 L (35-175) mcg/dl Transferrin 244 (200-360) mg/dl Transferrin % Sat 7 L (20-50) % Ferritin 553.1 H (8-388) ng/ml 07/09/19 07/09/19 07/09/19 Range/Units 16:37 15:40 13:47 APTT 108.7 H* (21.0-31.0) Seconds PTT Ratio 4.0 Activ Coag Time Kaolin (94-140) SECONDS Sodium (136-145) mmol/L Potassium (3.5-5.1) mmol/L Chloride (98-107) mmol/L Carbon Dioxide (21-32) mmol/L Anion Gap (3-11) BUN (7-18) mg/dl Creatinine (0.6-1.4) mg/dl Est Cr Clr Drug Dosing ml/min Est GFR ( Amer) Est GFR (Non-Af Amer) BUN/Creatinine Ratio (10-20) Glucose (70-99) mg/dl POC Glucose 379 H* 291 H (70-99) Calcium (8.5-10.1) mg/dl Iron (35-175) mcg/dl Transferrin (200-360) mg/dl Transferrin % Sat (20-50) % Ferritin (8-388) ng/ml 07/09/19 Range/Units 13:33 APTT (21.0-31.0) Seconds PTT Ratio Activ Coag Time Kaolin 224 H (94-140) SECONDS Sodium (136-145) mmol/L Potassium (3.5-5.1) mmol/L Chloride (98-107) mmol/L Carbon Dioxide (21-32) mmol/L Anion Gap (3-11) BUN (7-18) mg/dl Creatinine (0.6-1.4) mg/dl Est Cr Clr Drug Dosing ml/min Est GFR ( Amer) Est GFR (Non-Af Amer) BUN/Creatinine Ratio (10-20) Glucose (70-99) mg/dl POC Glucose (70-99) Calcium (8.5-10.1) mg/dl Iron (35-175) mcg/dl Transferrin (200-360) mg/dl Transferrin % Sat (20-50) % Ferritin (8-388) ng/ml Diagnostic Findings I have reviewed the MRI, possible macroadenoma versus meningioma PG Care Time/CCT Total # of Minutes Spent Total Time Spent with Patient: Total time spent is greater than 50% in coordination of care (as documented) at patient's floor/unit and/or counseling patient: (1) Headache Headache type: unspecified Headache chronicity pattern: acute headache Intractability: intractable Qualified Code(s): R51 - Headache (2) CAD (coronary artery disease) Coronary Disease-Associated Artery/Lesion type: [place] artery [place] vs. transplanted heart: [place] heart Associated angina: with other forms of angina Qualified Code(s): I25.118 - Atherosclerotic heart disease of [place] coronary artery with other forms of angina pectoris (3) Hyperlipidemia Hyperlipidemia type: mixed hyperlipidemia Qualified Code(s): E78.2 - Mixed hyperlipidemia
[2019-07-10 11:52] LABS: Follicle Stimulating Hormone 1.69 IU/L; Luteinizing Hormone 0.53 IU/L; Prolactin 157.62 ng/ml; Testosterone 19.3 ng/dl
[2019-07-10] MEDS ORDERED: GADOBUTROL 65ML VIAL IV PRN (12:33)
--- NOTE | 2019-07-10 12:54 | Magnetic Resonance Report ---
MRI OF THE BRAIN WITHOUT AND WITH IV CONTRAST CLINICAL HISTORY: Sellar mass. COMPARISON STUDY: Noncontrast MRI of the brain dated 07/09/2019 TECHNIQUE: MRI of the brain was performed from the vertex to the skull base utilizing various T1 and T2 weighted sequences. Following the IV administration of 8 mL of Gadavist contrast, additional enhan pina images were obtained. FINDINGS: Axial FIESTA, dynamic pre and post contrast coronal T1 sequence the pituitary, thin section post gado linium sagittal T1-weighted images were acquired There is a sellar mass measuring 2.9 x 2.8 x 2.9 cm. The mass is heterogeneously enhancing. The mass results in deviation of the pituitary infundibulum to the left of midline. There is mass effect on th e optic chiasm which is superiorly elevated and displaced slightly to the left. The mass invades the right cavernous sinus and encases the right internal carotid artery. As a normally appearing displaced pituitary gland is not visualized, the findings favor a pituitary m acroadenoma over meningioma. There is no evidence of ventricular dilatation. IMPRESSION: 1. 2.9 x 2.8 x 2.9 cm sellar mass with evidence of right cavernous sinuses indication and right inter nal carotid artery encasement. There is mass effect on the optic chiasm and pituitary infundibulum. A lthough there is a differential diagnosis for lesions in this location, a pituitary macroadenoma is f avored Electronically signed by: Samuel Corona M.D. 07/10/2019 12:53 PM
[2019-07-10] MEDS: METOPROLOL TARTRATE 25 MG TAB PO SCH ×2 (13:20→20:45)
[2019-07-10] MEDS: ENOXAPARIN INJ 40 MG/0.4 ML SYR SQ SCH (13:20)
[2019-07-10] MEDS ORDERED: PHARMACY GLYCEMIC MGMT CONSULT PRN (15:12)
[2019-07-10] MEDS ORDERED: INSULIN GLARGINE SOLOSTAR 100 UNITS/ML 3 ML PEN SC ONE (15:45)
--- NOTE | 2019-07-10 15:45 | Pharmacy Report ---
Glycemic Control Consultation - Date of Service July 10, 2019 - Scope Scope: Glycemic Pharmacist consulted by Dr Marcial Campa on 07/10/19 for glycemic control and to write orders per [facility] inpatient glycemic control protocol - Objective Weight: 78.1 kg Accuchecks BSG (last 24hrs): 07/09/19 07/09/19 07/10/19 16:37 21:22 04:15 Glucose 259 H POC Glucose 379 H* 347 H* 07/10/19 07/10/19 07/10/19 07:09 08:32 09:27 Glucose POC Glucose 231 H 216 H 215 H 07/10/19 07/10/19 07/10/19 11:30 13:05 15:01 Glucose POC Glucose 200 H 183 H 190 H Laboratory Data (last 24hrs): 07/10/19 04:15 Potassium 3.8 Carbon Dioxide 23 Anion Gap 9.0 Creatinine 0.50 L Est Cr Clr Drug Dosing 210.1 HbA1c: Hemoglobin A1c 15.2 % (4.5-5.6) H 07/09/19 06:59 - Recent Pertinent Medications Outpatient Anti-diabetic Regimen: * N/A- does not take any antidiabetic medications and does not believe in the value of insulin The patient is currently receiving: * Basal insulin: Lantus 15 units every 12 hours * Correctional Insulin: Novolog Correction per scale ACHS Goal Range: Low 100 mg/dL - High 140 mg/dL Correction Factor: 30 mg/dL/unit * Prandial insulin: Per carb ratio of 1 unit per 10 grams CHO consumed * IV insulin infusion @ 2 units/hr - Assessment & Plan Assessment & Plan: ASSESSMENT: * 33yo diabetic male with poor control per A1c, secondary to non-compliance with antidiabetic regimen. Will need to work with DM educators and PCP/Endo on insulin education * Pt with severe hyperglycemia secondary to refusing SQ insulin in house and baseline poor control * IV insulin infusion started in ICU per protocol. SQ insulin dosing continued with IV insulin which was appropriate. The insulin infusion was essentially serving as "correctional insulin" * IV insulin infusion has been running at 2 units/hr consistently with adequate BSG lowering. This is in addition to the 30 units of Lantus on board * Pt NPO while on insulin infusion * Per these calculations, this equates to a basal insulin dose of ~ 78 units * Hesitant to administer such a large dose for fear that the patient would feel hypoglycemic at otherwise normal BSGs d/t elevated A1c and if we do induce hypo it will further deter him from wanting to use insulin in the future. * Instead, will start with weight based dosing and add frequent accuchecks/coverage with NovoLog to make up any insulin deficiency. PLAN FOR INPATIENT GLYCEMIC CONTROL: * Transition off IV insulin infusion per protocol * May DC IV insulin infusion when held per protocol OR 6 hrs after the Lantus dose given, whichever happens sooner. * The IV insulin infusion rate must be 1 unit/hr less in order to stop the in fusion, otherwise call pharmacist for addition Lantus dosing. * Basal insulin * Pt received 15 units this morning. Will give additional Lantus 25 units now and then start Lantus 20 units SQ BID in the morning * Bolus insulin * NovoLog per scale ACHS + Q4hrs overnight * Goal Range: Low 110 mg/dL - High 160 mg/dL * Correction Factor: 30 mg/dL/unit * Nutritional / Prandial insulin per carb ratio of 1 unit per 10 grams CHO consumed * Please note that the plan above was derived based on current level of insulin resistance and hospital stress. These recommendations are appropriate for inpatient admission only. Plan of care upon discharge will need to be reassessed to avoid potential outpatient hypo/hyperglycemia. Thank you.
--- NOTE | 2019-07-10 16:49 | Family Medicine Progress Note ---
Date of Service July 10, 2019 Assessment & Plan (1) Pituitary abnormality: 33 y/o M presents for chest pain and was found to have mild elevation in his troponins and taken for an elective cardiac cath now s/p 5 SIMRAN to RCA (1 SIMRAN after ER and 4 SIMRAN postprocedural after pt had worsening chest pain with EKG changes). 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 Pituitary Abnormality -MRI 07/10: 2.9 x 2.8 x 2.9 cm sellar mass with evidence of right cavernous sinuses indication and right internal carotid artery encasement. There is mass effect on the optic chiasm and pituitary infundibulum. 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 Churchill): advises that once CV stable, to make appt with neurosurgery clinic at [facility] within 2 wks, where they will accept pt and then move on to . This is noncritical, no transfer is needed at present. If pt's condition worsens, then at that point will re-assess for transfer. In interim, will push forward imaging and labs to [facility] -Labs: TSH .414, FSH 1.69 WNL. Low LH .53, High Prolactin 157, Low Testosterone 19.3. IGF, 24-hour urine cortisol, cortisol at 8 AM tomorrow pending STEMI/CAD -2/2 RCA dissection post initial PCI for severe RCA diseasenow with 5 SIMRAN -Continue DAPT with aspirin 81 daily, ticagrelor 90mg BID for at least one year -Cont low-dose metoprolol tartrate 12.5 mg twice daily. Possible ACEi tomorrow -Continue high intensity statin atorvastatin 40 mg -trops peaked and downtrending -appreciate cards input -cont on pcu tele -ECHO 07/10: LV systolic fxn mild to mod. reduced, severe hypokinesis of inferoposterior wall. EF 35-40%. No significant valvular pathology. -Cardiac rehab post-discharge Severe uncontrolled DM -markedly elevated HbA1c (15%). -after much coercing, pt agreeable to intensive insulin regimen. -consult art educator and license inspector. -appreciate glycemic management consult Hyperlipidemia Cont high-intensity statin as above Consider triglyceride lowering agent as well given the level (>300) on d/c Headache -likely from adenoma, maybe aspect of nitroglycerin usage. -Pt with prior use of topamax and other agents but no prior h/o migraine headache ?BAYLEE -Not formally dx, but very likely. Observed periods of apnea during sleep by providers -outpt sleep study on d/c -may see runs of asymptomatic vtach during nighttime FEN/GI: DM 2 diet DVT prophylaxis: Lovenox FULL CODE Dispo: PCU Tele Supervising Physician Co-Signing Physician Notes Patient seen and examined with PGY-2 Dr Campa. Agree with history, exam findings, assessment and plan of care as outlined. In brief, Mr. Solitario is a 33 year old male with history of uncontrolled DM (HgbA1C 15%) admitted with chest pain that evolved to a STEMI. He underwent cath yesterday with SIMRAN placed in RCA. Started having chest pain again later in the day and taken back to cath where right coronary artery dissection was found. Received SIMRAN to remainder of RCA. Continue ASA and Brillinta. High intensity statin. Start beta samson today and KENIA inhibitor tomorrow. Appreciate cardiology recommendations. Will need cardiac rehab on discharge. Complained of persistent HERNANDEZ. MRI brain with pituitary mass. Pituitary MRI done showing 2.9 x 2.8 x 2.9 cm sellar mass invading the right cavernous sinus and right carotid artery incasement with mass effect on the optic chiasm. Spoke with neurosurgery at [facility] for opinion. Patient does not require transfer and is not a good candidate for surgical intervention at this time given his recent cardiac intervention and uncontrolled DM. Tylenol and morphine ordered for pain. Discussed with patient and family that headache may be difficult to control given the mass and we will likely not be able to eliminate the headaches completely. No neurologic deficits. Will need optho follow up as well to get an accurate eye exam/visual field testing. DM uncontrolled. Started basal insulin yesterday. Will stop insulin gtt this afternoon and titrate basal insulin based on sugars. Apneic episodes. Likely has undiagnosed sleep apnea. Will order CPAP for tonight and will need qualifying test in house if possible. Dispo: pending clinical improvement. Subjective 33 y/o M found in bed this AM very tired, but easily arousable on exam. Complaints of ongoing HERNANDEZ, blurry vision. Otherwise denies CP, SOB, palitations, N/V, diaphoresis. Girlfriend very concerned about pt not eating much, consoled. [facility], see A&P below for details. No other acute concerns or complaints. Review of Systems Review of Systems: All systems reviewed & are unremarkable except as noted in HPI & below Physical Exam Constitutional: WD/WN, vitals as above Eyes: PERRL, conjunctivae normal, anicteric sclerae normal visual ramos by confrontation ENMT: external ear and nose normal, oropharynx normal Respiratory: normal respiratory effort, lungs clear to auscultation Cardiovascular: RRR, no murmur, no edema Gastrointestinal (Abdomen): normal bowel sounds, soft, nontender, no hepatosplenomegaly Skin: no rashes, warm and dry Neurologic: CN's II-XI intact bilaterally and moves all extremities; no focal motor deficits Cranial Nerves: EOM intact bilaterally Psychiatric: Orientation: alert and oriented x 3 Results & Data Vital Signs (Past 12 Hours) Vital Signs Temp Pulse Pulse Resp BP BP Pulse Ox 07/10/19 16:00 65 07/10/19 15:37 37.1 C 64 18 118/64 96 07/10/19 13:01 37.3 C 62 14 110/72 94 07/10/19 11:00 65 10 L 120/84 97 07/10/19 10:00 74 21 129/87 98 07/10/19 09:35 71 12 138/88 98 07/10/19 09:00 63 98 07/10/19 08:00 37.7 C H 57 L 13 130/81 98 07/10/19 07:00 61 18 110/72 94 07/10/19 06:45 64 7 L 98 07/10/19 06:30 64 16 97 07/10/19 06:15 59 L 12 96 07/10/19 06:00 70 18 130/94 96 07/10/19 05:45 62 0 L 95 07/10/19 05:30 65 22 95 07/10/19 05:15 80 31 H 95 07/10/19 05:00 69 29 H 123/79 95 07/10/19 04:45 77 12 93 Laboratory Results Laboratory Results - last 24 hr 07/09/19 07/09/19 07/10/19 19:25 21:22 04:15 Activ Coag Time Kaolin 235 H Sodium 133 L Potassium 3.8 Chloride 101 Carbon Dioxide 23 Anion Gap 9.0 BUN 9 Creatinine 0.50 L Est Cr Clr Drug Dosing 210.1 Est GFR ( Amer) > 150.0 Est GFR (Non-Af Amer) 142.4 BUN/Creatinine Ratio 17.4 Glucose 259 H POC Glucose 347 H* Calcium 8.6 Iron 25 L Transferrin 244 Transferrin % Sat 7 L Ferritin 553.1 H Troponin I TSH FSH Luteinizing Hormone Prolactin Testosterone Level Insulin-like GF I IGF I Z-Score (Male) IGF I Z-Score (Female) 07/10/19 07/10/19 07/10/19 07:09 08:32 09:27 Activ Coag Time Kaolin Sodium Potassium Chloride Carbon Dioxide Anion Gap BUN Creatinine Est Cr Clr Drug Dosing Est GFR ( Amer) Est GFR (Non-Af Amer) BUN/Creatinine Ratio Glucose POC Glucose 231 H 216 H 215 H Calcium Iron Transferrin Transferrin % Sat Ferritin Troponin I TSH FSH Luteinizing Hormone Prolactin Testosterone Level Insulin-like GF I IGF I Z-Score (Male) IGF I Z-Score (Female) 07/10/19 07/10/19 07/10/19 10:50 10:50 10:50 Activ Coag Time Kaolin Sodium Potassium Chloride Carbon Dioxide Anion Gap BUN Creatinine Est Cr Clr Drug Dosing Est GFR ( Amer) Est GFR (Non-Af Amer) BUN/Creatinine Ratio Glucose POC Glucose Calcium Iron Transferrin Transferrin % Sat Ferritin Troponin I TSH 0.414 FSH 1.69 Luteinizing Hormone 0.53 Prolactin 157.62 Testosterone Level 19.3 Insulin-like GF I Pending IGF I Z-Score (Male) Pending IGF I Z-Score (Female) Pending 07/10/19 07/10/19 07/10/19 10:50 11:30 13:05 Activ Coag Time Kaolin Sodium Potassium Chloride Carbon Dioxide Anion Gap BUN Creatinine Est Cr Clr Drug Dosing Est GFR ( Amer) Est GFR (Non-Af Amer) BUN/Creatinine Ratio Glucose POC Glucose 200 H 183 H Calcium Iron Transferrin Transferrin % Sat Ferritin Troponin I 86.300 H* TSH FSH Luteinizing Hormone Prolactin Testosterone Level Insulin-like GF I IGF I Z-Score (Male) IGF I Z-Score (Female) 07/10/19 15:01 Activ Coag Time Kaolin Sodium Potassium Chloride Carbon Dioxide Anion Gap BUN Creatinine Est Cr Clr Drug Dosing Est GFR ( Amer) Est GFR (Non-Af Amer) BUN/Creatinine Ratio Glucose POC Glucose 190 H Calcium Iron Transferrin Transferrin % Sat Ferritin Troponin I TSH FSH Luteinizing Hormone Prolactin Testosterone Level Insulin-like GF I IGF I Z-Score (Male) IGF I Z-Score (Female) Medications Administered Current Inpatient Medications Acetaminophen (Tylenol) 650 mg PO Q4H PRN PRN Reason: Mild Pain (scale 1-3) Stop: 08/08/19 14:24 Aspirin (A[facility]in Chew) [facility] [place]: 08/08/19 08:59 Last Admin: 07/10/19 07:31 Dose: 81 mg Documented by: Atorvastatin Calcium (Lipitor) 40 mg PO [facility] Stop: 08/09/19 08:59 Last Admin: 07/10/19 07:42 Dose: 40 mg Documented by: Dextrose (Dextrose 50%) 25 - 50 ml IV UD PRN; Protocol PRN Reason: Hypoglycemia Protocol Stop: 08/07/19 23:27 Enoxaparin Sodium (Lovenox) 40 mg SQ [facility] Stop: 08/09/19 11:14 Last Admin: 07/10/19 13:20 Dose: 40 mg Documented by: Gadobutrol (Gadavist 65ml) 8 ml IV ONCE PRN PRN Reason: Interaction Checking Stop: 07/14/19 12:32 Last Admin: 07/10/19 12:33 Dose: 8 ml Documented by: Glucagon (Glucagen) 1 mg SQ UD PRN; Protocol PRN Reason: Hypoglycemia Protocol Stop: 08/07/19 23:27 Glucose (Dex4 Glucose) 4 - 8 tabs PO UD PRN; Protocol PRN Reason: Hypoglycemia Protocol Stop: 08/07/19 23:27 Glucose (Glucose 40%) 15 - 30 gm PO UD PRN; Protocol PRN Reason: Hypoglycemia Protocol Stop: 08/07/19 23:27 Insulin Human Regular 250 (units/ Sodium Chloride) 250 mls @ 2 mls/hr IV .Q24H LILLIANA; Protocol Stop: 07/10/19 21:00 Last Titration: 07/10/19 11:37 Dose: 2 units/hr, 2 mls/hr Documented by: Insulin Aspart (Novolog Flexpen) 0 units SC ACHS [facility] Stop: 08/08/19 00:00 Last Admin: 07/09/19 22:02 Dose: 7 units Documented by: Insulin Aspart (Novolog Flexpen) 0 units SC TODAY@0000,0400 [facility] Stop: 07/11/19 04:01 Insulin Glargine (Lantus Solostar Pen) 20 units SC BID [facility] Stop: 08/10/19 08:59 Metoprolol Tartrate (Lopressor) 12.5 mg PO BID [facility] Stop: 08/09/19 10:59 Last Admin: 07/10/19 13:20 Dose: 12.5 mg Documented by: Miscellaneous (Carbohydrates For Hypoglycemia) 15 - 30 gm PO UD PRN PRN Reason: Hypoglycemia Treatment Stop: 08/07/19 23:27 Miscellaneous Information (Consult Glycemic Management Pharmacy) 1 ea N/A UD PRN PRN Reason: Consult Stop: 08/09/19 15:11 Miscellaneous Information (Dc Iv Insulin Infusion) 1 ea N/A TODAY@2100 ONE Stop: 07/10/19 21:01 Morphine Sulfate (Morphine Sulfate) 4 mg IV Q2H PRN PRN Reason: Chest Pain Stop: 07/22/19 23:27 Last Admin: 07/09/19 14:51 Dose: 4 mg Documented by: Morphine Sulfate (Morphine Sulfate) 1 - 4 mg IV Q2M PRN PRN Reason: Severe Pain (7,8,9,10) Stop: 07/23/19 14:26 Nitroglycerin (Nitrostat) 0.4 mg SL UD PRN PRN Reason: Chest Pain Stop: 08/07/19 23:27 Ondansetron HCl (Zofran) 4 mg IV Q6H PRN PRN Reason: Nausea And Vomiting Stop: 08/08/19 14:24 Ticagrelor (Brilinta) 90 mg PO BID [facility] Stop: 08/08/19 20:59 Last Admin: 07/10/19 07:30 Dose: 90 mg Documented by: PG Care Time/CCT Total # of Minutes Spent Total Time Spent with Patient: Total time spent is greater than 50% in coordination of care (as documented) at patient's floor/unit and/or counseling patient: Resident Activity Tracking Resident Involvement: Resident Care Provided Care Provided: Adult Hospital Medicine
[2019-07-10] MEDS ORDERED: DC IV INSULIN INFUSION 1 EA DEVI ONE (21:00)
[2019-07-10] MEDS: ACETAMINOPHEN 325 MG TAB PO PRN (23:08)
[2019-07-11] MEDS: INSULIN ASPART 100 UNITS/ML 3 ML PEN SC SCH ×6 (00:10→20:15)
[2019-07-11] MEDS: ONDANSETRON INJ 2 MG/ML 2 ML VIAL IV PRN (06:34)
--- NOTE | 2019-07-11 08:09 | Cardiology Progress Note ---
Date of Service July 11, 2019 Assessment & Plan (1) CAD (coronary artery disease): 2. STEMI secondary to RCA dissection post initial PCI for severe RCA diseasenow post a total of 5 SIMRAN 3. Moderate LV dysfunction with inferior, inferolateral akinesis 4. Pituitary macroadenoma 5. Poorly controlled diabetes, now on insulin 6. Dyslipidemia Remains chest pain-free. Hemodynamically and electrically stable. Troponin is peaked. No signs of heart failure on exam. No apparent access site complications. Continue DAPT with aspirin, ticagrelor Transition to Toprol-XL 25 mg daily Add lisinopril 5 mg daily. Continue high intensity statin From a cardiac standpoint okay with discharge today. Close cardiology follow-up in 2 weeks with me. Has plans to follow-up with [facility] neurosurgery in 2 weeks. If possible would encourage deferring elective neurosurgery/antiplatelet interruption in the setting of recent [place] and 5 drug-eluting stents. Subjective Feeling well today. Still with mild head pressure. No chest pain. Breathing comfortably. No other new complaints. Telemetry reviewedsinus rhythm, no events. Review of Systems Review of Systems: All systems reviewed & are unremarkable except as noted in HPI & below Physical Exam Physical Exam: General: Comfortable, no acute distress HEENT: Sclerae anicteric, mucous membranes moist Lungs: Clear to auscultation bilaterally, no rhonchi or wheezes Cardiac: Regular rate and rhythm, no murmurs. No JVD. Abdomen: Soft, nontender, nondistended, positive bowel sounds. Extremities: Warm, well perfused, no edema. Right radial artery access site with minimal ecchymosis, no hematoma. Distal pulse and sensation intact. Right LINESPERSON access site pulse intact, no hematoma. Left LINESPERSON access site pulse intact, no hematoma. Skin: No rashes or lesions. Neuro: Nonfocal Psych: Alert orient x3, normal affect and mood Results & Data Vital Signs (Past 12 Hours) Vital Signs Temp Pulse Pulse Resp BP BP Pulse Ox 07/11/19 08:02 37.7 C H 90 16 120/82 97 07/11/19 04:00 37.4 C 81 17 118/81 94 07/10/19 23:16 37.9 C H 79 18 108/71 95 07/10/19 22:13 83 18 98 PG Care Time/CCT Total # of Minutes Spent Total Time Spent with Patient: Total time spent is greater than 50% in coordination of care (as documented) at patient's floor/unit and/or counseling patient: (1) CAD (coronary artery disease) Coronary Disease-Associated Artery/Lesion type: [place] artery [place] vs. transplanted heart: [place] heart Associated angina: with other forms of angina Qualified Code(s): I25.118 - Atherosclerotic heart disease of [place] coronary artery with other forms of angina pectoris
[2019-07-11 08:12] LABS: Basophils # (auto) 0.01 K/uL (0-0.2); Basophils % (auto) 0.1 %; Hematocrit (blood only) 36.4 % (42-52); Immature Granulocytes # (auto) 0.07 K/uL (0.00-0.02); Immature Granulocytes % (auto) 0.5 %; Lymphocytes % (auto) 10.6 %; Mean Corpuscular Hgb Conc 35.7 g/dL (32-36); Mean Corpuscular Volume 78.1 fL (80-100); Mean Platelet Volume 10.9 fL (7.4-10.4); Monocytes # (auto) 1.98 K/uL (0.11-0.59); Neutrophils # (auto) 10.58 K/uL (1.4-6.5); Neutrophils % (auto) 74.8 %; Platelet Count 246 K/uL (130-400); RDW Coefficient of Variation 12.4 % (11.5-14.5); RDW Standard Deviation 35.2 fL (36.4-46.3); Red Blood Count 4.66 M/uL (4.7-6.1); White Blood Count 14.14 K/uL (4.8-10.8)
[2019-07-11 08:40] LABS: BUN Creatinine Ratio 21.2 (10-20); Blood Urea Nitrogen 10 mg/dl (7-18); Calcium 8.6 mg/dl (8.5-10.1); Carbon Dioxide 20 mmol/L (21-32); Chloride 100 mmol/L (98-107); Creatinine Clr Calc Pharmacy 228.4 ml/min; Est GFR (African American) > 150.0; Est GFR (Non-African American) 147.3; Glucose 210 mg/dl (70-99); Magnesium 1.9 mg/dl (1.8-2.4); Potassium 3.7 mmol/L (3.5-5.1); Sodium 132 mmol/L (136-145)
[2019-07-11 08:41] LABS: Phosphorus 3.1 mg/dl (2.5-4.9)
[2019-07-11] MEDS ORDERED: INSULIN GLARGINE SOLOSTAR 100 UNITS/ML 3 ML PEN SC SCH ×3 (09:00→16:30)
[2019-07-11] MEDS: METOPROLOL TARTRATE 25 MG TAB PO SCH ×2 (09:04→20:17)
[2019-07-11] MEDS: ENOXAPARIN INJ 40 MG/0.4 ML SYR SQ SCH (09:05)
[2019-07-11] MEDS: ATORVASTATIN 40 MG TAB PO SCH (09:05)
[2019-07-11] MEDS: TICAGRELOR 90 MG TAB PO SCH ×2 (10:15→20:19)
[2019-07-11] MEDS: ASPIRIN 81 MG CHEW PO SCH (10:15)
--- NOTE | 2019-07-11 10:28 | Pharmacy Report ---
Pharmacy Glycemic Short Note 2 - Date of Service July 11, 2019 - Glycemic Short BSG Results (Last 24 hours): 07/10/19 07/10/19 07/10/19 11:30 13:05 15:01 Glucose POC Glucose 200 H 183 H 190 H 07/10/19 07/10/19 07/10/19 16:37 17:50 18:31 Glucose POC Glucose 178 H 169 H 177 H 07/10/19 07/11/19 07/11/19 20:29 00:02 04:10 Glucose POC Glucose 157 H 208 H 220 H 07/11/19 07/11/19 07:34 07:58 Glucose 210 H POC Glucose 189 H OUTPATIENT ANTIDIABETIC REGIMEN: * N/A - has not been taking anything * A1c = 15.2% on 07/09/19 ASSESSMENT: * 33yo diabetic male with poor control per A1c, secondary to non-compliance with antidiabetic regimen. Pt now accepting SQ insulin injections and BSGs continue to improve with insulin * IV insulin infusion started in ICU per protocol. SQ insulin dosing continued with IV insulin which was appropriate. The insulin infusion was essentially serving as "correctional insulin." IV insulin infusion transitioned off yesterday per protocol. * BSGs since off the infusion are: [phone] * This is adequate. Goal BSG range for patient is 140-250 mg/dl at this time as patient may feel hypoglycemic at otherwise normal BSGs d/t elevated A1c and if we do induce hypo it will further deter him from wanting to use insulin in the future. * Patient has received 44 units of SQ insulin over the past 24hrs. * All of this is basal insulin as patient is not eating. * AM fasting BSG this morning is 189 mg/dl which is near goal range for patient at this time. Ultimately, will want AM fasting BSG <120 mg/dl but best to work up to this over time. * No changes needed at this time PLAN FOR INPATIENT GLYCEMIC CONTROL: * Basal insulin: continue Lantus 40-50 units/day divided BID * Lantus SQ BID dosing based on BSG * For BSG 180 mg/dl or below --> Lantus 20 units * For BSG >180 mg/dl --> Lantus 25 units * Bolus insulin: no change * NovoLog per scale ACHS or Q6hrs while NPO * Goal Range: Low 110 mg/dL - High 160 mg/dL * Correction Factor: 30 mg/dL/unit * Nutritional / Prandial insulin per carb ratio of 1 unit per 10 grams CHO consumed PLAN FOR DISCHARGE: * A1c = 15.2 % on 07/09/19 * Pt specific goal A1c is ~ 7% * A1c goal should be individualized based on risk of hypo/drug AE, disease duration, life expectancy, relevant co-morbidities, established vascular complication, patient attitude and expected treatment efforts, resources and support system. * A1c is greater than or equal to 10% --> consider metformin + combination injectable therapy (basal insulin + rapid acting insulin OR GLP1-RA). Recommend initiating pharmacologic therapy with CVD benefit such as a SGLT2-i (Canagliflozin, Empagliflozin) vs a GLP-1 RA (Liraglutide, Semaglutide, dulaglutide) * Metformin, if not contraindicated and if tolerated, is the preferred initial pharmacological agent for type 2 diabetes. Metformin has a long- standing evidence base for efficacy and safety, is inexpensive, and may reduce risk of cardiovascular events. * B12 supplementation may be necessary with fpc metformin use * Recommend: Metformin, basal insulin (Lantus vs NPH depending on insurance coverage) + SGLT2 (Canagliflozin or Empagliflozin) vs GLP1 (Liraglutide or Semaglutide or dulaglutide) * The specific SGLT2 and GLP1's have cardiovascular risk reduction evidence. * Support Patient Self-Management * Healthy Lifestyle (diet, exercise, and smoking cessation) * Disease self-management (SMBG) * Prevention of complications (BP, Lipid goals, Immunizations) * Consider outpatient Diabetes Self-Management Education & Support
--- NOTE | 2019-07-11 13:34 | Family Medicine Progress Note ---
Date of Service July 11, 2019 Assessment & Plan (1) Pituitary abnormality: 33 y/o M presents for chest pain and was found to have mild elevation in his troponins and taken for an elective cardiac cath now s/p 5 SIMRAN to RCA (1 SIMRAN after ER and 4 SIMRAN postprocedural after pt had worsening chest pain with EKG changes). 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 Pituitary Abnormality -MRI 07/10: 2.9 x 2.8 x 2.9 cm sellar mass with evidence of right cavernous sinuses indication and right internal carotid artery encasement. There is mass effect on the optic chiasm and pituitary infundibulum. 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 Churchill): advises that once CV stable, to make appt with neurosurgery clinic at [facility] within 2 wks, where they will accept pt and then move on to sx. This is noncritical, no transfer is needed at present. If pt's condition worsens, then at that point will re-assess for transfer. In interim, will push forward imaging and labs to [facility] -Will speak with CM to make neurosx clinic arrangements before d/c -Labs: TSH .414, FSH 1.69 WNL. Low LH .53, High Prolactin 157, Low Testosterone 19.3, High AM cortisol 29.97. IGF, 24-hour urine cortisol pending -will need optho eval moving forward to better assess visual field testing STEMI/CAD -2/2 RCA dissection post initial PCI for severe RCA diseasenow with 5 SIMRAN -Continue DAPT with aspirin 81 daily, ticagrelor 90mg BID for at least one year -Cont Toprol-XL 25 mg daily. Lisinopril 5 mg daily -Continue high intensity statin atorvastatin 40 mg -trops peaked and downtrending -appreciate cards input. Stable for d/c. Close cardiology follow-up in [address] El -cont on pcu tele -ECHO 07/10: LV systolic fxn mild to mod. reduced, severe hypokinesis of inferoposterior wall. EF 35-40%. No significant valvular pathology. -Cardiac rehab post-discharge Severe uncontrolled DM -markedly elevated HbA1c (15%). -after much coercing, pt agreeable to intensive insulin regimen. -consult auditor internal and service restorer emergency -appreciate glycemic management consult -BSG appropriately high. Do not want to go too low as pt has been living in very high range for long time -Will work on d/c DM management Hyperlipidemia Cont high-intensity statin as above Consider triglyceride lowering agent as well given the level (>300) on d/c Headache -likely from adenoma, maybe aspect of nitroglycerin usage. -Pt with prior use of topamax and other agents but no prior h/o migraine headache ?BAYLEE -Not formally dx, but very likely. Observed periods of apnea during sleep by providers -outpt sleep study on d/c -pt refused CPAP here -may see runs of asymptomatic vtach during nighttime FEN/GI: DM 2 diet DVT prophylaxis: Lovenox FULL CODE Dispo: PCU Tele Supervising Physician Co-Signing Physician Notes Patient seen and examined with PGY-2 Dr Campa. Agree with history, exam findings, assessment and plan of care as outlined. In brief, Mr. Solitario is a 33 year old male with history of uncontrolled DM (HgbA1C 15%) admitted with chest pain that evolved to a STEMI. He underwent cath yesterday with SIMRAN placed in RCA. Started having chest pain again later in the day and taken back to cath where right coronary artery dissection was found. Received SIMRAN x4 to remainder of RCA. Continue ASA and Brillinta. High intensity statin. Started beta samson yesterday and began KENIA inhibitor today. Trop has peaked and is now downtrending. Appreciate cardiology recommendations. Will need cardiac rehab on discharge. Complained of persistent HERNANDEZ. MRI brain with pituitary mass. Pituitary MRI done showing 2.9 x 2.8 x 2.9 cm sellar mass invading the right cavernous sinus and right carotid artery incasement with mass effect on the optic chiasm. Spoke with neurosurgery at [facility] for opinion. Patient does not require transfer and is not a good candidate for surgical intervention at this time given his recent cardiac intervention and uncontrolled DM. Tylenol and morphine ordered for pain. Discussed with patient and family that headache may be difficult to control given the mass and we will likely not be able to eliminate the headaches completely. Right visual field deficit, EOM in tact. Will need optho follow up as well to get an accurate eye exam/visual field testing. Appreciate CM assistance with getting appointment with [facility] neurosurgery clinic in 1-2 weeks. Images were pushed from PACS to [facility], but would recommend patient have a disc made at discharge to take with him to his appt. DM uncontrolled. Started basal insulin yesterday. Spoke with pharmacist and will start to transition him to a daily basal insulin regimen to increase medication adherence at home. Start metformin at discharge. Would also recommend starting SGLT2 or GLP1 as an outpatient. Meeting with auditor internal tomorrow--can discuss pens vs vials/syringes. Suspect that pens would be easiest for him. Goal glucose between 140-250. Appreciate pharmacy assistance with glucose management. Likely has undiagnosed sleep apnea. Attempted CPAP last night but patient did not like the mask. Can consider sleep study as an outpatient if patient is willing. Dispo: likely discharge home Friday or Friday. Subjective 33 yo M found in bed this AM in NAD. Fever high 37.9 overnight. Also episode of emesis. Pt refused CPAP. Tele showed NSR in 70s. Pt with ongoing complaints of head pressure, some blurry vision. Continues to be sleepy, but easily arousable. Otherwise denies CP, SOB, palpitations, diaphoresis. No other acute concerns or complaints. Review of Systems Review of Systems: All systems reviewed & are unremarkable except as noted in HPI & below Physical Exam Constitutional: WD/WN, vitals as above Eyes: PERRL, conjunctivae normal, anicteric sclerae temporal hemianopsia in just R eye ENMT: external ear and nose normal, oropharynx normal Respiratory: normal respiratory effort, lungs clear to auscultation Cardiovascular: RRR, no murmur, no edema Gastrointestinal (Abdomen): normal bowel sounds, soft, nontender, no hepatosplenomegaly Skin: no rashes, warm and dry Neurologic: CN's II-XI intact bilaterally and moves all extremities; no focal motor deficits Cranial Nerves: EOM intact bilaterally Psychiatric: Orientation: alert and oriented x 3 Results & Data Vital Signs (Past 12 Hours) Vital Signs Temp Pulse Resp BP BP Pulse Ox 07/11/19 11:46 37.4 C 81 16 124/78 97 07/11/19 08:02 37.7 C H 90 16 120/82 97 07/11/19 04:00 37.4 C 81 17 118/81 94 Laboratory Results Laboratory Results - last 24 hr 07/10/19 07/10/19 07/10/19 15:01 16:37 17:13 WBC RBC Hgb Hct MCV MCH MCHC RDW Std Deviation RDW Coeff of Javid Plt Count MPV Immature Gran % (Auto) Neut % (Auto) Lymph % (Auto) [place] % (Auto) Eos % (Auto) Baso % (Auto) Immature Gran # (Auto) Neut # (Auto) Lymph # (Auto) [place] # (Auto) Eos # (Auto) Baso # (Auto) Sodium Potassium Chloride Carbon Dioxide Anion Gap BUN Creatinine Est Cr Clr Drug Dosing Est GFR ( Amer) Est GFR (Non-Af Amer) BUN/Creatinine Ratio Glucose POC Glucose 190 H 178 H Calcium Phosphorus Magnesium Troponin I 63.100 H* Cortisol AM Sample 07/10/19 07/10/19 07/10/19 17:50 18:31 20:29 WBC RBC Hgb Hct MCV MCH MCHC RDW Std Deviation RDW Coeff of Javid Plt Count MPV Immature Gran % (Auto) Neut % (Auto) Lymph % (Auto) [place] % (Auto) Eos % (Auto) Baso % (Auto) Immature Gran # (Auto) Neut # (Auto) Lymph # (Auto) [place] # (Auto) Eos # (Auto) Baso # (Auto) Sodium Potassium Chloride Carbon Dioxide Anion Gap BUN Creatinine Est Cr Clr Drug Dosing Est GFR ( Amer) Est GFR (Non-Af Amer) BUN/Creatinine Ratio Glucose POC Glucose 169 H 177 H 157 H Calcium Phosphorus Magnesium Troponin I Cortisol AM Sample 07/11/19 07/11/19 07/11/19 00:02 04:10 07:34 WBC RBC Hgb Hct MCV MCH MCHC RDW Std Deviation RDW Coeff of Javid Plt Count MPV Immature Gran % (Auto) Neut % (Auto) Lymph % (Auto) [place] % (Auto) Eos % (Auto) Baso % (Auto) Immature Gran # (Auto) Neut # (Auto) Lymph # (Auto) [place] # (Auto) Eos # (Auto) Baso # (Auto) Sodium Potassium Chloride Carbon Dioxide Anion Gap BUN Creatinine Est Cr Clr Drug Dosing Est GFR ( Amer) Est GFR (Non-Af Amer) BUN/Creatinine Ratio Glucose POC Glucose 208 H 220 H 189 H Calcium Phosphorus Magnesium Troponin I Cortisol AM Sample 07/11/19 07/11/19 07/11/19 07:58 07:58 07:58 WBC 14.14 H RBC 4.66 L Hgb 13.0 L Hct 36.4 L MCV 78.1 L MCH 27.9 MCHC 35.7 RDW Std Deviation 35.2 L RDW Coeff of Javid 12.4 Plt Count 246 MPV 10.9 H Immature Gran % (Auto) 0.5 Neut % (Auto) 74.8 Lymph % (Auto) 10.6 [place] % (Auto) 14.0 Eos % (Auto) 0.0 Baso % (Auto) 0.1 Immature Gran # (Auto) 0.07 H Neut # (Auto) 10.58 H Lymph # (Auto) 1.50 [place] # (Auto) 1.98 H Eos # (Auto) 0.00 Baso # (Auto) 0.01 Sodium 132 L Potassium 3.7 Chloride 100 Carbon Dioxide 20 L Anion Gap 12.0 H BUN 10 Creatinine 0.46 L Est Cr Clr Drug Dosing 228.4 Est GFR ( Amer) > 150.0 Est GFR (Non-Af Amer) 147.3 BUN/Creatinine Ratio 21.2 H Glucose 210 H POC Glucose Calcium 8.6 Phosphorus 3.1 Magnesium 1.9 Troponin I Cortisol AM Sample 29.97 H 07/11/19 11:33 WBC RBC Hgb Hct MCV MCH MCHC RDW Std Deviation RDW Coeff of Javid Plt Count MPV Immature Gran % (Auto) Neut % (Auto) Lymph % (Auto) [place] % (Auto) Eos % (Auto) Baso % (Auto) Immature Gran # (Auto) Neut # (Auto) Lymph # (Auto) [place] # (Auto) Eos # (Auto) Baso # (Auto) Sodium Potassium Chloride Carbon Dioxide Anion Gap BUN Creatinine Est Cr Clr Drug Dosing Est GFR ( Amer) Est GFR (Non-Af Amer) BUN/Creatinine Ratio Glucose POC Glucose 195 H Calcium Phosphorus Magnesium Troponin I Cortisol AM Sample Medications Administered Current Inpatient Medications Acetaminophen (Tylenol) 650 mg PO Q4H PRN PRN Reason: Mild Pain (scale 1-3) Stop: 08/08/19 14:24 Last Admin: 07/10/19 23:08 Dose: 650 mg Documented by: Aspirin (Aspirin Chew) 81 mg PO [facility] Stop: 08/08/19 08:59 Last Admin: 07/11/19 10:15 Dose: 81 mg Documented by: Atorvastatin Calcium (Lipitor) 40 mg PO QAM [facility] Stop: 08/09/19 08:59 Last Admin: 07/11/19 09:05 Dose: 40 mg Documented by: Dextrose (Dextrose 50%) 25 - 50 ml IV UD PRN; Protocol PRN Reason: Hypoglycemia Protocol Stop: 08/07/19 23:27 Enoxaparin Sodium (Lovenox) 40 mg SQ [facility] Stop: 08/09/19 11:14 Last Admin: 07/11/19 09:05 Dose: 40 mg Documented by: Gadobutrol (Gadavist 65ml) 8 ml IV ONCE PRN PRN Reason: Interaction Checking Stop: 07/14/19 12:32 Last Admin: 07/10/19 12:33 Dose: 8 ml Documented by: Glucagon (Glucagen) 1 mg SQ UD PRN; Protocol PRN Reason: Hypoglycemia Protocol Stop: 08/07/19 23:27 Glucose (Dex4 Glucose) 4 - 8 tabs PO UD PRN; Protocol PRN Reason: Hypoglycemia Protocol Stop: 08/07/19 23:27 Glucose (Glucose 40%) 15 - 30 gm PO UD PRN; Protocol PRN Reason: Hypoglycemia Protocol Stop: 08/07/19 23:27 Insulin Aspart (Novolog Flexpen) 0 units SC ACHS [facility] Stop: 08/08/19 00:00 Last Admin: 07/11/19 13:02 Dose: 1 units Documented by: Insulin Glargine (Lantus Solostar Pen) 0 units SC BID [facility]; Protocol Stop: 08/10/19 08:59 Last Admin: 07/11/19 09:05 Dose: 25 units Documented by: Metoprolol Tartrate (Lopressor) 12.5 mg PO BID [facility] Stop: 08/09/19 10:59 Last Admin: 07/11/19 09:04 Dose: 12.5 mg Documented by: Miscellaneous (Carbohydrates For Hypoglycemia) 15 - 30 gm PO UD PRN PRN Reason: Hypoglycemia Treatment Stop: 08/07/19 23:27 Miscellaneous Information (Consult Glycemic Management Pharmacy) 1 ea N/A UD PRN PRN Reason: Consult Stop: 08/09/19 15:11 Morphine Sulfate (Morphine Sulfate) 4 mg IV Q2H PRN PRN Reason: Chest Pain Stop: 07/22/19 23:27 Last Admin: 07/09/19 14:51 Dose: 4 mg Documented by: Morphine Sulfate (Morphine Sulfate) 1 - 4 mg IV Q2M PRN PRN Reason: Severe Pain (7,8,9,10) Stop: 07/23/19 14:26 Nitroglycerin (Nitrostat) 0.4 mg SL UD PRN PRN Reason: Chest Pain Stop: 08/07/19 23:27 Ondansetron HCl (Zofran) 4 mg IV Q6H PRN PRN Reason: Nausea And Vomiting Stop: 08/08/19 14:24 Last Admin: 07/11/19 06:34 Dose: 4 mg Documented by: Ticagrelor (Brilinta) 90 mg PO BID [facility] Stop: 08/08/19 20:59 Last Admin: 07/11/19 10:15 Dose: 90 mg Documented by: PG Care Time/CCT Total # of Minutes Spent Total Time Spent with Patient: Total time spent is greater than 50% in coordination of care (as documented) at patient's floor/unit and/or counseling patient: Resident Activity Tracking Resident Involvement: Resident Care Provided Care Provided: Adult Hospital Medicine
[2019-07-11] MEDS: ACETAMINOPHEN 325 MG TAB PO PRN (16:15)
[2019-07-11] MEDS: MoRPHine SULFATE 4 MG/ML 1 ML CARP\\VIAL IV PRN (17:55)
[2019-07-12] MEDS: MoRPHine SULFATE 4 MG/ML 1 ML CARP\\VIAL IV PRN ×2 (01:03→08:28)
[2019-07-12 06:14] LABS: Basophils # (auto) 0.02 K/uL (0-0.2); Basophils % (auto) 0.2 %; Eosinophils # (auto) 0.02 K/uL (0-0.5); Eosinophils % (auto) 0.2 %; Hematocrit (blood only) 35.4 % (42-52); Hemoglobin 12.3 g/dL (14.0-18.0); Immature Granulocytes # (auto) 0.07 K/uL (0.00-0.02); Immature Granulocytes % (auto) 0.7 %; Lymphocytes # (auto) 2.32 K/uL (1.2-3.4); Lymphocytes % (auto) 21.9 %; Mean Corpuscular Hgb Conc 34.7 g/dL (32-36); Mean Corpuscular Volume 79.2 fL (80-100); Mean Platelet Volume 11.1 fL (7.4-10.4); Monocytes # (auto) 1.49 K/uL (0.11-0.59); Neutrophils # (auto) 6.69 K/uL (1.4-6.5); Platelet Count 242 K/uL (130-400); RDW Coefficient of Variation 12.4 % (11.5-14.5); RDW Standard Deviation 35.7 fL (36.4-46.3); Red Blood Count 4.47 M/uL (4.7-6.1); White Blood Count 10.61 K/uL (4.8-10.8)
[2019-07-12 06:44] LABS: BUN Creatinine Ratio 19.6 (10-20); Blood Urea Nitrogen 11 mg/dl (7-18); Calcium 8.5 mg/dl (8.5-10.1); Carbon Dioxide 25 mmol/L (21-32); Chloride 98 mmol/L (98-107); Creatinine Clr Calc Pharmacy 181.2 ml/min; Est GFR (African American) > 150.0; Glucose 160 mg/dl (70-99); Potassium 3.5 mmol/L (3.5-5.1); Sodium 132 mmol/L (136-145)
[2019-07-12] MEDS: ATORVASTATIN 40 MG TAB PO SCH (08:27)
[2019-07-12] MEDS: ENOXAPARIN INJ 40 MG/0.4 ML SYR SQ SCH (08:29)
[2019-07-12] MEDS: INSULIN ASPART 100 UNITS/ML 3 ML PEN SC SCH ×3 (08:29→17:59)
[2019-07-12] MEDS: ASPIRIN 81 MG CHEW PO SCH (08:29)
[2019-07-12] MEDS: ONDANSETRON INJ 2 MG/ML 2 ML VIAL IV PRN (08:40)
[2019-07-12] MEDS: TICAGRELOR 90 MG TAB PO SCH (08:48)
[2019-07-12] MEDS ORDERED: LISINOPRIL 5 MG TAB PO SCH (09:00)
[2019-07-12] MEDS ORDERED: METOPROLOL SUCC 25MG EXT REL TAB PO SCH (09:00)
[2019-07-12] MEDS ORDERED: INSULIN GLARGINE SOLOSTAR 100 UNITS/ML 3 ML PEN SC SCH (10:00)
--- NOTE | 2019-07-12 14:31 | Pharmacy Report ---
ED Pharmacist Progress Note - ED Pharmacist Progress Note Date of Service:: July 12, 2019 Notes:: Received call from Maryse Dunbar regarding oxycodone prescription written for patient. Needed and indication- acute pain from several indications- STEMI. Also wanted to switch from capsules to tablets. Let her know most likely not an issue however, need to contact provider as CII. Paged Dr. Epstein. Alerted 2S pharmacist-
--- NOTE | 2019-07-12 15:47 | Discharge Summary ---
Date of Service July 12, 2019 Admission HPI Per Admitting Provider 33-year-old male presents to the emergency department with his girlfriend complaining of chest pain and possible shortness of breath. During this H&P, patient seems a bit sedated s/p Ativan but is easily arousable. He does not volunteer any information. Majority of the history is per the ED note and his girlfriend at bedside. - Per the girlfriend, the patient had a very stressful morning at work. He was given some increased responsibilities. She states that about 1:40 PM this afternoon he started developing central chest pain that radiated to his left arm and shoulder blade. Patient says this pain was constant until he was treated for it in the ED. When I asked him, initially said he was here because he was "out of breath". At present, he denies any chest pain, shortness of breath, nausea or vomiting, abdominal pain, or any other acute concerns. - We also discussed his elevated blood sugars and his ED note from a day ago. His girlfriend states that the patient was once on metformin but does not really like to take it. She also stated that the patient really dislikes insulin and does not want to be on it. I asked the patient and he replied that he does not like insulin because it is "unproven science" and that it hurt many members of his family they were on it. At present, he does say he would prefer to be on pill management for diabetes. His girlfriend says that his regular PCP was in [place] and they are looking for a primary provider in [place]. - Past medical history includes diabetes and anxiety. - No noted past surgical history. - Family history includes history of hypertension and diabetes. He also says that his father has had multiple heart attacks and that his brother (1 year difference) also has had multiple heart attacks. - Social history includes former smoker. Denies alcohol and illicit drug use. 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 Principal Diagnosis cad, adenoma, dm2 Discharge Exam Constitutional WD/WN, vitals as above Eyes PERRL, conjunctivae normal, anicteric sclerae R eye temporal hemianopsia ENMT external ear and nose normal, oropharynx normal Respiratory normal respiratory effort, lungs clear to auscultation Cardiovascular RRR, no murmur, no edema Gastrointestinal (Abdomen) normal bowel sounds, soft, nontender, no hepatosplenomegaly Skin no rashes, warm and dry Neurologic CN's II-XI intact bilaterally and moves all extremities; no focal motor deficits Cranial Nerves: EOM intact bilaterally Psychiatric Orientation: alert and oriented x 3 Discharge Data Allergies Allergy/AdvReac Type Severity Reaction Status Date / Time bee venom protein (honey bee) Allergy Severe HIVES Verified 07/07/19 03:45 pollen extracts Allergy Mild UNKNOWN Verified 07/07/19 03:45 Consultations 07/08/19 20:22 ED Decision to Admit Stat 07/09/19 09:36 Consult Cardiology Routine 07/09/19 20:09 Consult Licensed And Certified Midwife Stat 07/11/19 13:47 Consult Case Management - Discharge Planning Routine Procedures Performed Operation Date: 07/09/19 12:00 Actual Procedures s Drug Eluting Stent SGl Vessel - Cuba El MD p Cath, Left with Cors and Vent - Cuba El MD s Cineradiography w/Routine Exam - Cuba El MD Operation Date: 07/09/19 18:45 Actual Procedures p Aspiration/PCI w/SIMRAN for Stemi - Cuba El MD s Cineradiography w/Routine Exam - Cuba El MD Ordered Studies 07/09/19 11:45 CL Cath Imgs for PACS use only Routine 07/09/19 18:33 CL Cath Imgs for PACS use only Urgent 07/09/19 20:18 MR brain wo con Urgent 07/10/19 10:42 MR brain pituitary wo/w con Routine Hospital Course (1) Pituitary abnormality: 33 y/o M presented for chest pain and was found to have mild elevation in his troponins and taken for an elective cardiac cath now s/p 5 SIMRAN to RCA (1 SIMRAN after ER and 4 SIMRAN postprocedural after pt had worsening chest pain with EKG changes). Additionally, pt had complaints of significant HERNANDEZ and found to have a incidental finding of 2.9 x 2.8 x 2.9 cm sellar mass favoring a pituitary macroadenoma. The following was the medical management during stay here: Pituitary Abnormality -MRI 07/10: 2.9 x 2.8 x 2.9 cm sellar mass with evidence of right cavernous sinuses indication and right internal carotid artery encasement. There is mass effect on the optic chiasm and pituitary infundibulum. 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 Churchill): advises that once CV stable, to make appt with neurosurgery clinic at [facility] within 2 wks, where they will accept pt and then move on to sx. This is noncritical, no transfer is needed at present. If pt's condition worsens, then at that point will re-assess for transfer. In interim, will push forward imaging and labs to [facility] -Neuroendocrine clinic arrangements made 08/20 -Labs: TSH .414, FSH 1.69 WNL. Low LH .53, High Prolactin 157, Low Testosterone 19.3, High AM cortisol 29.97. IGF, 24-hour urine cortisol pending -will need optho eval moving forward to better assess visual field testing. This will be arranged for once at [facility] STEMI/CAD -2/2 RCA dissection post initial PCI for severe RCA diseasenow with 5 SIMRAN -Continue DAPT with aspirin 81 daily, ticagrelor 90mg BID for at least one year -Cont Toprol-XL 25 mg daily. Lisinopril 5 mg daily -Continue high intensity statin atorvastatin 40 mg -trops peaked and downtrending -appreciate cards input. Stable for d/c. Close cardiology follow-up 07/[address] El -cont on pcu tele -ECHO 07/10: LV systolic fxn mild to mod. reduced, severe hypokinesis of inferoposterior wall. EF 35-40%. No significant valvular pathology. -Cardiac rehab post-discharge Severe uncontrolled DM -markedly elevated HbA1c (15%). -after much coercing, pt was agreeable to intensive insulin regimen. -On D/C, Lantus 30 units daily, Novolog 10 units per meal. This will be adjusted by PCP as needed -BSG appropriately high. Do not want to go too low as pt has been living in very high range for long time Hyperlipidemia Cont high-intensity statin as above Consider triglyceride lowering agent as well given the level (>300) on d/c Headache -likely from adenoma, maybe aspect of nitroglycerin usage. -Pt with prior use of topamax and other agents but no prior h/o migraine headache -Pt to take LILLIANA Tylenol 650 TID and given Rx for oxycodone 5 mg q6h prn for breakthrough pain ?BAYLEE -Not formally dx, but very likely. Observed periods of apnea during sleep by providers -outpt sleep study on d/c -pt refused CPAP here -may see runs of asymptomatic vtach during nighttime At time of d/c, pt had no other acute conerns or complaints. Total Time Total Time Spent Total Time Spent (In Minutes): 30 Discharge Plan Discharge Items Patient Disposition: Home - Self-Care Reason For Visit: CHEST PAIN Discharge Diagnosis: diabetes, pituitary adenoma, coronary artery disease Discharge Goals: Improve disease control and Therapeutic intervention Activity: Per 'Additional Instructions' section Non-emergency contact: Primary Care Provider Call non-emergency contact if: you have any medication questions and your symptoms worsen Follow-up/Referrals: [facility] [Other] - 08/20/19 10:15 am (Please, follow up at [facility] on FridayAugust 20 at 10:15 am. *The office is located at [address] [place] [address] in [place]. Use the main entrance of the hospital and then turn right. You will take the D elevator to the 2nd floor. If you have any questions, call the clinic at [phone]. THEY WILL CALL YOU IF THEY ARE ABLE TO ARRANGE AN EARLIER APPOINTMENT) Cuba El MD [Physician] - 07/23/19 2:10 pm (Please, follow up at [facility]'s Cardiology Office with Dr. El on FridayJuly 23 at 2:30 pm (arrive 2:10 pm). *The office is located in [address] of The [facility]. This is the big building located next to this [facility]. If you need to change this appointment, call the office at [phone].) Rashard Campa DO [Primary Care Provider] - 07/19/19 8:50 am (Please, follow up with Dr. Nickolas Campa on FridayJuly 19 at 8:50 am. He will be your new primary care provider. *The office is located in [address] of The [facility]. This is the big building next to this [facility]. If you need to change this appointment, call the office at [phone].) Diet: Carb Consistent or DM2 and Heart Healthy Add Provider Instructions: Coronary Artery Disease: You were admitted with concerns of chest pain and were found to have coronary artery disease that required 5 drug eluting stents. From a cardiac standpoint, you are stable, but certainly return FLAVIO if you feel any chest pain that reminds you of what you felt when you had your heart attack. -as we discussed, nursing home "doing well" with coronary disease is more about the medications and lifestyle change than the stents; but despite that, somewhere on the order of 2/3 of people aren't taking their meds right 6 months out. don't let that be you! if you have a problem with medications, talk to Dr Campa or Dr El rather than just stopping things You will continue to take the following medications: aspirin 81 daily ticagrelor 90mg twice a day -both the aspirin and ticagrelor (brilinta) are "antiplatelet" blood thinners that help prevent clots from forming in the stents. you'll need to be on two until directed otherwise by Dr El because of having just had the stents put in, then eventually you'll likely be able to just be on the aspirin alone indefinitely -Toprol-XL 25 mg daily - this is a class of blood pressure medicines called beta blockers, this helps relax your heart muscle and take strain off your heart so it doesn't have to work as hard. sometimes people will feel fatigue with this class of medicines - usually not, and you're at a very low dose, but if it seems to be a problem Dr Campa or Dr El can adjust things. -Lisinopril 5 mg daily - while this is a blood pressure medicine too, it works very differently than the toprol XL -- this medicine allows your kidneys to open up blood flow down the renal artery. Since kidneys take about 20% of all bloodflow, reducing backpressure from the kidneys really does an excellent job of taking strain off your heart. Most people this is protective of their kidneys as well, but Dr Campa will want to check labwork in about a week to make sure your kidneys are happy with it (basic metabolic panel - to be drawn either late this week or early next week --> if your numbers were off at all stopping the medication allows everything to settle back to normal) - atorvastatin 40 mg - while technically this is a blood pressure medicine, its more important role is to stabilize plaque that is in your arteries. the "last steps" leading up to a heart attack are rupture of the plaque in the artery wall and then a clot forming on the break in the blood vessel. while the antiplatelets (aspirin and brilinta) help reduce the clot forming part of the problem, medicines like atorvastatin stabilize the plaque in the artery wall to reduce the chances of the plaque breaking open to begin with. most people tolerate these meds well; a very small percentage get muscle aches (feeling like you have the flu but don't have the flu) or leg cramps - but this would be well under 1% of people. Dr Campa will also follow labwork, although generally true liver issues with statins are an extreme rarity. Diabetes -Based on your lab work and sugar levels it is clear that you are an uncontrolled diabetic -As we discussed, the main reason for concern is that "high sugars clog arteries" in the higher your sugars run in the longer they run high the more you will corrode blood vessels in ways that you cannot correct. Your diabetes would certainly be the biggest reason for the heart attack that you had -In general, anytime your sugar is above about 150 you will be doing a small degree of damage to the blood vessel -On A1c is a marker of higher sugars have run for the last 3 months, and in general and A1c above 7.0 progressively puts you into more and more high sugars clog arteries range (your current A1c was 15.2) -As we discussed, the main thing causing type 2 diabetes is lifestyle. Not only does eating simple carbohydrates spike your sugar in the moment, but it makes your body make more insulin to get the sugar out of your bloodstream and into your muscles. When done repeatedly, your muscles "get addicted" to the insulin and want to more each time you eat something similar. Eventually, your pancreas is not able to keep up with the insulin requirements her muscles want, and sugar start to creep into diabetic ranges. For you, the single biggest culprits are the sugary drinks. I suspect simply stopping those would likely cut your A1c in half and make your sugar much easier to control. Working at avoiding all simple carbs (starches, potato-based products, as well as sugars and sugary drinks) should get you to the goal of "putting your diabetes into remission" -Cardiovascular exercise (something on the order of a 20 to 30-minute walk/bike ride/anything that gets your heart rate up) also does a good job of making you more sensitive to insulin over the long-term. Ideally work toward a goal of 20 to 30 minutes of light cardiovascular exercise every day, if possible. For now, we will need to manage the sugar with insulins. Because normal physiology has her pancreas making a small amount of insulin in a fasting state, and then a surge of insulin that is bigger or smaller based on the carbohydrates we eat, we will be sending you out on a similar regimen2 different insulins, one as a "basal" and one as a "bolus". -right now this will be a "work in progress" -- as your dosing will likely need to be changed fairly rapidly as your lifestyle improves ----> for now we'll do lantus as our basal insulin and novolog as our bolus insulin -lantus is a long acting insulin - it takes about 2 hours to kick in after injecting it, then reaches no peak in activity, and lasts for 24hrs (slowly fading out from hours 18-24) -- for now we'll use 30 units a day (again this will likely be subject to change) -novolog is a short acting insulin - it kicks in about 15 minutes after you inject it, reaches a peak about 90 minutes after you take it, then wears off about 3-4 hours after you take it. we'll want you to use a different amount of novolog insulin based on the carbs that you eat (foods with more sugar/starch/carbs will need more insulin, foods with less sugars/starches/carb will need less insulin) - for now, we'll have you center around 10 units at each meal (ie, if you're not sure what to do, use 10 units) -- the cruz to this strategy is checking a sugar 2 hours or so after eating and learning from it --> when you do this, the goal is to have a sugar 2 hours after eating between about 100-150. if you see sugars that are too high after, then the next time you eat that food or something similar, take more insulin (and also think twice about eating that food). if you see sugars that are low (and lows tend to make people feel weak, shaky, sweaty, and sometimes a little confused) then take less insulin the next time you eat that or something similar (and for a sugar reading below 80, drink about 4 ounces of juice or eat a few crackers to correct the low) ---overall the short acting insulin should make up about 50% of your daily dose, and the long acting should be about the other 50%. this doesn't have to be exact, but if you're seeing that your proportions of long to short are way off of a 50/50, then you'll want to talk to Dr Campa for more guidance -the main reason your insulins will be such a "work in progress" is that with improvement in your lifestyle, our hope is to get you off the insulin over time -- because of this, you'll probably find times where you are near-low or have a few lows, then you'll talk to Dr Campa about reducing doses of the lantus and reducing the center point for the novolog. ideally, as you continue to improve your eating and exercise habits, you should be able to "put your diabetes into remission" -check sugars 2 hours after each meal (to "grade your work" on matching up the novolog with the carbs you ate), and ideally check a fasting sugar at times (to "grade" the effectiveness of the lantus dose) Low testosterone -More than likely, this goes [id number] with the diabetes. As you improve your eating and lifestyle, this will hopefully improve over time. Dr. Campa will follow it periodically, and if it does not improve he may need to start testosterone supplementation, but for now since there is a good chance of improvement with an improvement in your lifestyle, we will have him watch it closely. Lastly, you were also diagnosed as having a pituitary adenoma, which is a mass in your brain that is explaining your visual and headache symptoms. This will be managed by [facility], and you have a follow up appt with them is being scheduled. -For pain control, "lay a foundation" with Tylenol 650 mg 3 times a day -On top of that, use oxycodone 5 mg up to 4 times a day as needed for pain. As we discussed this medicine does come with "baggage" and that it makes people groggy, causes constipation, and can create physical dependency. Therefore try to use it sparingly, but obviously for the short-term it may be a "necessary evil". As we discussed anti-inflammatories might help with the pain, but they reduce your blood vessels ability to dilate when needed, which would be dangerous for your coronary arteries, so the oxycodone and Tylenol seems to be our only real viable option. After surgery, his pain improved, Dr. Campa will work with you on getting rid of the oxycodone. If it seems like it is difficult to just stop, he may need to slowly wean it over a few weeks to a month. That said, not everyone develops dependency, and it may be able to just be stopped when your pain no longer requires aggressive control. Please follow the below instructions on discharge: -Continue to take all your medications as outlined above -Please follow up with your PCP (Dr. Campa) on 07/19 at 8:50 AM -If your symptoms that brought you into the ER in the first place persist/worsen, then please come back into the ER for treatment Prescriptions: New atorvastatin 40 mg Tablet 40 mg PO QAM Qty: 30 RF: 0 lisinopril [Zestril] 5 mg Tablet 5 mg PO QAM Qty: 30 RF: 0 Brilinta 90 mg Tablet 90 mg PO BID Qty: 60 RF: 0 acetaminophen [Mapap (acetaminophen)] 325 mg Tablet 650 mg PO TID Qty: 90 RF: 0 nitroglycerin [Nitrostat] 0.4 mg Tablet, Sublingual 0.4 mg sublingual UD Qty: 30 RF: 0 metoprolol succinate 25 mg Tablet Extended Release 24 Hr 25 mg PO QAM Qty: 30 RF: 0 aspirin 81 mg Tablet,Chewable 81 mg PO QAM Qty: 30 RF: 0 Novolog Flexpen U-100 Insulin 100 unit/mL (3 mL) Insulin Pen 10 unit SC AC Qty: 1 RF: 3 Lantus Solostar U-100 Insulin 100 unit/mL (3 mL) Insulin Pen 30 unit SC DAILY Qty: 1 RF: 3 oxycodone 5 mg capsule 5 mg PO Q6H PRN (Reason: pain) Qty: 30 RF: 0 No Action No Known Home Medications RF: 0 Stand-Alone Forms: Call Back Authorization, [facility], Work/School Release (Inpt) Discharge Orders: Discharge Order (Routine); Ordered 07/12/19 Ordered By: Rashard Campa Admission Data Admit Date/Time: 07/09/19 10:36 Attending Provider: Stanton Epstein Admit Provider: Wilfredo Barfield Primary Care Provider: Rashard Campa Other Providers: Sylvain Qureshi ; Cuba El ; Tania Estes Service: Telemetry Other Interventions: Discharge Summary Assessment (RN) Last Done: 07/12/19 16:03 DC Date/Time DO NOT enter until pt leaves facility: 07/12/19 18:18 Supervising Physician Co-Signing Physician Notes I personally examined the patient and verified all cruz points of history and exam, discussed case, and agree with decision making with Dr Campa. Feeling better. Feeling up to going home. Does still have a headache. Nurse nav[facility] it is far further than we would like to be, but the program lead she talked to had that is the first available but would be forwarding our clinical urgency onto the staff with anticipation of a sooner appointment being made. No further chest pain. Extensive discussions on lifestyle change for diabetes management. Patient very receptive and patient and girlfriend asked very good questions. Vitals noted, in general he is awake and alert pleasant no distress. HEENT normocephalic atraumatic mucous members moist. Breathing unlabored no accessory muscle use good effort. Skin shows no rashes no pallor or icterus. STEMIstatus post stenting. Secondary risk reduction/medical management. Stable for home Markedly uncontrolled type 2 diabetesanticipate massive lifestyle change. Sent home on basal bolus insulin for now, but discussed that this will likely be very dynamic as he improves his lifestyle. Close PCP follow-up. Hypo-testosteronemore than likely ties together with the above, for more likely than related to pituitary tumor. Follow as he improves lifestyle, supplement if it does not correct. Pituitary tumorreferral for neurosurgery evaluation as above. Discussed risks and benefits of headache management, anti-inflammatories obviously unsafe due to his coronary disease, Tylenol alone not working well. After careful discussion of risks and benefits of a short course of narcotic pain medicine seems to be necessary at this time. Risks, benefits, and unique problems to narcotic regimens outlined. Patient and girlfriend expressed good understanding. Stable for home Resident Activity Tracking Resident Involvement: Resident Care Provided Care Provided: Adult Hospital Medicine
--- NOTE | 2019-07-12 21:00 | Cardiology Progress Note ---
Date of Service July 12, 2019 Assessment & Plan (1) CAD (coronary artery disease): 2. STEMI secondary to RCA dissection post initial PCI for severe RCA diseasenow post a total of 5 SIMRAN 3. Moderate LV dysfunction with inferior, inferolateral akinesis 4. Pituitary macroadenoma 5. Poorly controlled diabetes, now on insulin 6. Dyslipidemia Remains chest pain-free. Hemodynamically and electrically stable. Troponin is peaked. No signs of heart failure on exam. No apparent access site complications. From a cardiac standpoint OK for discharge today. Home on -- DAPT with aspirin, ticagrelor Toprol-XL 25 mg daily, lisinopril 5 mg daily. Continue high intensity statin Close cardiology follow-up in 2 weeks with me. Has plans to follow-up with [facility] neurosurgery in 2 weeks. If possible would encourage deferring elective neurosurgery/antiplatelet interruption in the setting of recent RI and 5 drug-eluting stents. Subjective No chest pain. Headache improved. Tele unremarkable Review of Systems Review of Systems: All systems reviewed & are unremarkable except as noted in HPI & below Physical Exam Physical Exam: General: sleepy, no acute distress HEENT: Sclerae anicteric, mucous membranes moist Lungs: Clear to auscultation bilaterally, no rhonchi or wheezes Cardiac: Regular rate and rhythm, no murmurs. No JVD. Abdomen: Soft, nontender, nondistended, positive bowel sounds. Extremities: Warm, well perfused, no edema. Right radial artery access site with minimal ecchymosis, no hematoma. Distal pulse and sensation intact. Right [employer] access site pulse intact, no hematoma. Left [employer] access site pulse intact, no hematoma. Skin: No rashes or lesions. Neuro: Nonfocal Psych: Alert orient x3, normal affect and mood Results & Data Vital Signs (Past 12 Hours) Vital Signs Temp Pulse Pulse Resp BP BP Pulse Ox 07/12/19 16:03 37.1 C 49 L 86 16 104/69 100/70 97 07/12/19 15:38 37.1 C 86 16 100/70 97 07/12/19 11:21 37.3 C 79 16 104/69 97 PG Care Time/CCT Total # of Minutes Spent Total Time Spent with Patient: Total time spent is greater than 50% in coordination of care (as documented) at patient's floor/unit and/or counseling patient: (1) CAD (coronary artery disease) Coronary Disease-Associated Artery/Lesion type: [place] artery [place] vs. transplanted heart: [place] heart Associated angina: with other forms of angina Qualified Code(s): I25.118 - Atherosclerotic heart disease of [place] coronary artery with other forms of angina pectoris
[2019-07-16 15:20] LABS: ILGF1 Z-Score Female DNR
[2019-07-16 18:19] LABS: Creatinine 24 Hr Urine 1.72 g/24 h (0.50-2.15)
== END 2019-07-12 18:18 | disposition home or self-care (01) | DRG 246 ==
LOC: 2W 18:28 → ED 18:28 → 2W 22:54 → SUATTDRO 07-09 10:36 → 2S 07-09 14:51 → 1E 07-09 20:35 → 2S 07-10 11:05